=== PATIENT | male | born 1940 | race Caucasian/White ===

== ENCOUNTER 2016-03-17 12:44 | Emergency (ER) | payer MEDICARE ==
--- NOTE | 2016-03-17 13:49 | RAD ---
LEFT KNEE 4 VIEWS HISTORY: Left knee pain status post fall.. Frontal, lateral, and bilateral oblique views of the left knee. COMPARISON: 04/22/2015. ALIGNMENT: Lateral bowing of the fibular and tibial diaphyses. JOINT SPACES: Mild to moderate lateral tibial joint space narrowing. JOINT EFFUSION: Trace effusion, decreased over the interval. CALCIFICATIONS: Dystrophic calcifications along the proximal tibia. Mild to moderate vascular calcifications. FRACTURE: Evidence of remote proximal fibular and tibial fractures with increased sclerosis over the interval; nondisplaced acute on chronic injury is difficult to exclude. IMPRESSION: Changes of prior tibial and fibular diaphyseal fractures with associated angulation. Superimposed acute on chronic fracture is not excluded, consider CT correlation. Moderate lateral joint space narrowing. Evidence of lower extremity atherosclerotic disease.
--- NOTE | 2016-03-17 14:57 | CT ---
CT LEFT LOWER EXTREMITY WITHOUT CONTRAST HISTORY: Status post fall, prior fractures of the proximal left tibia and fibula. No intravenous contrast administered. Contiguous axial images acquired through the left knee. Correlation against plain films of the same date. FINDINGS: Fractures: Evidence of remote fractures the proximal left tibia and fibula with minor lateral angulation. No superimposed displaced acute fracture is identified. Degenerative change: Mild to moderate joint space narrowing at the tibial femoral compartments. Minimal calcifications compatible with early chondrocalcinosis. Small joint effusion. Soft tissues: Moderate atherosclerotic calcifications. Edema seen overlying the tibial tubercle. Fluid collection which may reflect a small Mckeon's cyst, 1.9 cm in size. IMPRESSION: Posttraumatic deformity of the proximal left tibia and fibula. No displaced acute fracture identified. Mild to moderate tibiofemoral joint degeneration and chondrocalcinosis with small joint effusion. Prevertebral soft tissue edema. Evidence of atherosclerotic disease. Findings suggest a small Mckeon's cyst. Findings discussed with Dr. Allen of the Emergency Medicine clinical service on 03/17/2016 at 1453 hours.
[2016-03-17] MEDS ORDERED: HYDROCODONE/ACETAMINOPHEN 5/325MG TABLET ONE (15:13)
== END 2016-03-17 16:19 | disposition home or self-care (01) ==
LOC: ED 12:44
DX: S83.92XA Sprain of unspecified site of left knee, initial encounter (principal); W18.30XA Fall on same level, unspecified, initial encounter; Y92.9 Unspecified place or not applicable
CPT/HCPCS: 73564; 73700; 99284; 99283; A9270

== ENCOUNTER 2016-03-19 15:40 | Emergency (ER) | payer MEDICARE ==
[2016-03-19 16:11] LABS: ABSOLUTE NEUTROPHIL COUNT 10.8 K/mm3 (1.8-7.7); BASO % 0.2 % (0.2-1.0); EOS # 0.1 (0.0-0.5); EOS % 0.5 % (0.9-2.9); HEMATOCRIT 28.7 % (32.0-52.0); HEMOGLOBIN 9.3 gm/l (14.0-18.0); IMM NEUT # 0.2 K/mm3 (0-0.2); IMM NEUT% 1.2 % (0-1); LYMPH # 0.5 (1.0-4.8); LYMPH % 4.1 % (15-45); MEAN CELL VOLUME 86.4 fl (80.0-94.0); MEAN CORPUSCULAR HGB CONC 32.4 g/dl (33.0-37.0); MEAN PLATELET VOLUME 10.8 fl (7.4-10.4); MONO # 1.3 (0.0-0.8); MONO % 9.9 % (4-12); NEUT % 84.1 % (43-75); PLATELET COUNT 294 K/mm3 (130-400); RED CELL DISTRIBUTION WIDTH 16.2 % (11.5-14.5)
--- NOTE | 2016-03-19 16:29 | RAD ---
EXAMINATION : CHEST-AP BEDSIDE HISTORY: Altered mental status. COMPARISONS: 04/13/2015. FINDINGS: Cardiomegaly sternotomy wires and valvular replacement surgery changes are again noted. Pulmonary vascular congestion appears similar to the prior study. No superimposed acute infiltrate is currently identified. No gross effusion is identified. Moderate glenohumeral osteoarthritic changes are again noted. IMPRESSION: Stable cardiomegaly and moderate pulmonary vascular congestion. Postsurgical changes are noted.
[2016-03-19 16:38] LABS: ALB/GLOB RATIO 0.8 (>1.0); ALBUMIN 2.9 gm/dL (3.5-5.7); CALCIUM 8.8 mg/dL (8.6-10.3)
[2016-03-19] MEDS ORDERED: SODIUM CHLORIDE 0.9% 500 ML ONE (17:49)
[2016-03-19 19:29] LABS: PH,URINE 6.5 (5.0-8.0); SPECIFIC GRAVITY 1.015 (1.001-1.030); URINE BILIRUBIN NEGATIVE (NEGATIVE); URINE BLOOD NEGATIVE (NEGATIVE); URINE GLUCOSE (UA) NEGATIVE (NEGATIVE); URINE LEUKOCYTE ESTERASE 2+ (NEGATIVE); URINE NITRITE NEGATIVE (NEGATIVE); URINE PROTEIN NEGATIVE (NEGATIVE); URINE UROBILINOGEN NORMAL (0-1 mg/dl)
[2016-03-19 20:12] LABS: URINE APPEARANCE CLOUDY; URINE COLOR YELLOW
[2016-03-19 20:17] LABS: URINE RBC 0 /hpf
[2016-03-19 20:18] LABS: URINE AMORPHOUS SEDIMENT MODERATE; URINE BACTERIA 1+; URINE EPITHELIAL CELLS 0 /hpf
[2016-03-19] MEDS ORDERED: CEFTRIAXONE 1 GRAM DUPLEX 50 ML IV ONE (20:20)
[2016-03-19 20:43] LABS: INR 2.32; PROTHROMBIN TIME 25.5 SECONDS (9.3-11.4)
== END 2016-03-19 22:24 | disposition home or self-care (01) ==
LOC: ED 15:40
DX: N39.0 Urinary tract infection, site not specified (principal); R41.82 Altered mental status, unspecified; M79.662 Pain in left lower leg; I10 Essential (primary) hypertension; I50.9 Heart failure, unspecified; I25.10 Atherosclerotic heart disease of native coronary artery without angina pectoris; Z79.01 Long term (current) use of anticoagulants; W19.XXXA Unspecified fall, initial encounter; Y92.9 Unspecified place or not applicable
CPT/HCPCS: 85025; 87086; 80053; 87186; 85610; 81001; 87077; 71010; 99284; 96374; 96361; 93005; 99283; J7040; J0696

== ENCOUNTER 2016-03-21 19:38 | Inpatient (IN) | payer MEDICARE ==
[2016-03-21 20:27] LABS: ABSOLUTE NEUTROPHIL COUNT 16.9 K/mm3 (1.8-7.7); BASO % 0.2 % (0.2-1.0); HEMOGLOBIN 10.9 gm/l (14.0-18.0); IMM NEUT # 0.2 K/mm3 (0-0.2); IMM NEUT% 1.2 % (0-1); LYMPH # 0.6 (1.0-4.8); MEAN CELL VOLUME 86.3 fl (80.0-94.0); MEAN CORPUSCULAR HEMOGLOBIN 27.7 pg (27.0-31.0); MEAN CORPUSCULAR HGB CONC 32.1 g/dl (33.0-37.0); MEAN PLATELET VOLUME 10.4 fl (7.4-10.4); MONO # 1.3 (0.0-0.8); MONO % 6.9 % (4-12); NEUT % 88.7 % (43-75); PLATELET COUNT 375 K/mm3 (130-400); RED CELL DISTRIBUTION WIDTH 16.8 % (11.5-14.5)
[2016-03-21 20:32] LABS: ALB/GLOB RATIO 0.8 (>1.0); ALBUMIN 3.2 gm/dL (3.5-5.7); CALCIUM 8.8 mg/dL (8.6-10.3)
[2016-03-21] MEDS ORDERED: LIDOCAINE 2% UROJECT 10 ML ONE (20:52)
[2016-03-21] MEDS ORDERED: ACETAMINOPHEN 500 MG TABLET ONE (21:24)
[2016-03-21] MEDS ORDERED: CEFTRIAXONE 1 GRAM DUPLEX 50 ML IV ONE (21:24)
[2016-03-21] MEDS ORDERED: LACTATED RINGERS 2,000 ML ONE (21:25)
[2016-03-21 21:36] LABS: SPECIFIC GRAVITY 1.015 (1.001-1.030); URINE BILIRUBIN NEGATIVE (NEGATIVE); URINE BLOOD NEGATIVE (NEGATIVE); URINE GLUCOSE (UA) NEGATIVE (NEGATIVE); URINE LEUKOCYTE ESTERASE TRACE (NEGATIVE); URINE NITRITE NEGATIVE (NEGATIVE); URINE PROTEIN TRACE (NEGATIVE); URINE UROBILINOGEN NORMAL (0-1 mg/dl)
[2016-03-21 21:37] LABS: URINE APPEARANCE CLEAR; URINE COLOR YELLOW
[2016-03-21 22:01] LABS: URINE RBC 0 /hpf
[2016-03-21 22:02] LABS: URINE BACTERIA FEW
[2016-03-21] MEDS ORDERED: ASPIRIN CHEWTAB 81 MG TABLET ONE (22:03)
[2016-03-21] MEDS ORDERED: LACTATED RINGERS 1,000 ML ONE (22:57)
[2016-03-22] MEDS ORDERED: BISACODYL 10 MG SUP PR PRN (00:25)
[2016-03-22] MEDS ORDERED: SODIUM CHLORIDE 0.9% 100 ML IV PRN (00:25)
[2016-03-22] MEDS ORDERED: MENTHOL/CETYLPYRD 1 EACH LOZENGE PO PRN (00:25)
[2016-03-22] MEDS ORDERED: BISACODYL 5 MG TABLET.EC PO PRN (00:25)
[2016-03-22] MEDS ORDERED: MAGNESIUM HYDROXIDE 30 ML UDCUP PO PRN (00:25)
[2016-03-22] MEDS ORDERED: BLISTEX LIPSTICK 1 EACH TP PRN (00:25)
[2016-03-22] MEDS ORDERED: SODIUM CHLORIDE 0.9% 1,000 ML IV SCH ×2 (00:30→01:07)
[2016-03-22] MEDS ORDERED: WARFARIN PER PHARMACY 1 EACH DOSE PO SCH (00:45)
[2016-03-22] MEDS ORDERED: QUETIAPINE FUMARATE 25 MG TABLET PO PRN (00:49)
[2016-03-22] MEDS ORDERED: ALBUTEROL SULFATE MDI 60 PUFFS/INHALER IH PRN (00:49)
[2016-03-22] MEDS ORDERED: ZINC OXIDE OINTMENT 30 APPLIC/30 G TUBE TP PRN (00:49)
[2016-03-22] MEDS ORDERED: TRIAMCINOLONE ACET 0.025% TP PRN (00:49)
[2016-03-22] MEDS ORDERED: MELATONIN 3 MG TABLET PO PRN (00:49)
[2016-03-22] MEDS ORDERED: CLOBETASOL PROPIONATE TP PRN (00:49)
[2016-03-22] MEDS ORDERED: PIPERACILLIN-TAZO PREMIX BAG 50 ML IV ONE (01:15)
[2016-03-22] MEDS ORDERED: PUMP TUBING ONE ×2 (01:16→17:03)
[2016-03-22] MEDS: PIPERACILLIN-TAZO PREMIX BAG 3.375 G in Premix (D5W) 50 ml 1 EACH IV SCH ×3 (01:28→17:08)
[2016-03-22 02:19] VITALS: BMI 35.4
[2016-03-22 06:30] LABS: HEMATOCRIT 28.9 % (32.0-52.0); MEAN CELL VOLUME 87.3 fl (80.0-94.0); MEAN CORPUSCULAR HEMOGLOBIN 27.2 pg (27.0-31.0); MEAN CORPUSCULAR HGB CONC 31.1 g/dl (33.0-37.0); RED CELL DISTRIBUTION WIDTH 16.6 % (11.5-14.5)
[2016-03-22 07:01] LABS: INR 1.88; PROTHROMBIN TIME 20.4 SECONDS (9.3-11.4)
--- NOTE | 2016-03-22 08:33 | PDOC43 ---
- Subjective Chief Complaint: altered mental status Patient resting comfortably. He is crabby, has no pain. Scrotal edema for 3 days. He does not know why he was at the hospital but says he has lost a day. Denies shortness of breath, chest pain. Asking for something to drink Subjective: Reports Pain Tolerable, Denies Adequate Oral Intake, Denies Shortness of Breath, Denies Cough, Denies Chest Pain, Denies Abdominal Pain, Denies Nausea, Denies Vomiting - Objective Vital Signs Temperature 97.7 F 03/22/16 07:00 Pulse Rate 66 03/22/16 07:00 Respiratory Rate 12 03/22/16 07:00 Blood Pressure 105/54 03/22/16 07:00 O2 Saturation by Pulse Oximetry 97 03/22/16 07:15 Oxygen Delivery Method Nasal Cannula Oxygen Flow Rate 1 Intake and Output 03/20/16 03/21/16 03/22/16 23:59 23:59 23:59 Intake Total 3424 Output Total 1495 Balance 1929 General: Alert, Oriented x3, Cooperative, Other (crabby), No Acute Distress HEENT: Other (dry mucus membranes), No Atraumatic, No PERRLA, No EOMI Lungs: Clear to Auscultation Bilaterally, Other (expiratory wheeze with upper airway noise) Cardiovascular: Regular Rate and Rhythm, Normal S1, Normal S2, Other ( mechanical valve click) Abdomen: Soft, Distention, No Tenderness, No Rebounding Genitourinary: Indwelling Urinary Cath, Other (scrotal edema, erythema tender, no warmth) Extremities: Edema, No Cyanosis, No Tenderness Peripheral Pulses: Radial (L): 2+, Radial (R): 2+, Posterior Tibialis (L): 2+, Posterior Tibialis (R): 2+ Neurological: Normal Speech Psych/Mental Status: Normal Mood, Other (cannot recall events over past 24 hours but acknowledges that he lost 24 hours, very demanding and crabby. Knows in [facility]) Laboratory 03/22/16 05:30 03/22/16 05:30 03/22/16 03/22/16 05:30 05:20 RBC 3.31 L MCHC 31.1 L RDW 16.6 H PT 20.4 H BUN 54 H Estimated GFR 42 L Calcium 8.0 L Current Medications: Current meds reviewed in EMR. - Problems: Assessment/Plan (1) Acute metabolic encephalopathy Status: Acute Assessment/Plan: resolved, patient aware that he has lost 24 hours, knows at [facility]. Presumed 2nd to sepsis/UTI (2) Sepsis Status: Acute Assessment/Plan: Presumed 2nd to UTI that failed OP ABx. Urine culture with proteus from 03/19, treated with rocephin and keflex. UCx sensitivities available, on zoysn due to failure of cephalosporin. Improving (3) UTI (urinary tract infection) Qualifiers: Urinary tract infection type: site unspecified Hematuria presence: without hematuria Qualifier Code: (N39.0) Urinary tract infection, site not specified Status: Acute Assessment/Plan: Proteus Mirabellis on culture from , on zoysn (4) Combined systolic and diastolic congestive heart failure Qualifiers: Congestive heart failure chronicity: acute on chronic Qualifier Code: ( I50.43) Acute on chronic combined systolic (congestive) and diastolic ( congestive) heart failure Status: Acute Assessment/Plan: Echo with EF 20%. Currently slight oedal edema and scrotal edema. 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 Status: Chronic Assessment/Plan: chronic ABX (9) Hypertension Qualifiers: Hypertension type: essential hypertension Qualifier Code: (I10) Essential (primary) hypertension Status: Chronic Assessment/Plan: stable, med parameters due to low BP on presentation (10) Hypothyroidism Qualifiers: Hypothyroidism type: due to acquired atrophy of thyroid Qualifier Code : (E03.8) Other specified hypothyroidism Status: Chronic Assessment/Plan: stable (11) Hypokalemia Status: Chronic Assessment/Plan: replace, on diuretics (12) Anemia Qualifiers: Anemia type: other cause Other causes of anemia: chronic disease, kidney Qualifier Code: (N18.9) Chronic kidney disease, unspecified Status: Chronic Assessment/Plan: slight dip[ overnight due to dilutional affects, monitor (13) Atrial fibrillation Qualifiers: Atrial fibrillation type: paroxysmal Qualifier Code: (I48.0) Paroxysmal atrial fibrillation Status: Chronic Assessment/Plan: regular rhythm currently (14) COPD (chronic obstructive pulmonary disease) Qualifiers: COPD type: emphysema Emphysema type: unspecified Qualifier Code: ( J43.9) Emphysema, unspecified Status: Chronic Assessment/Plan: continue home therapies and nebs as needed
[2016-03-22] MEDS ORDERED: DOCUSATE SODIUM 100 MG CAPSULE PO SCH (09:00)
--- NOTE | 2016-03-22 09:45 | RAD ---
Exam: Two-view chest COMPARISON: 03/19/2016 and 04/13/2015 INDICATION: Fever and altered mental status. Findings: AP and lateral views of the chest were obtained. Lateral view is slightly limited due to motion artifact. Postsurgical changes of median sternotomy and valve replacement are again appreciated. Cardiomegaly is similar. Lung volumes remain low. There is no pulmonary edema, focal airspace disease or pleural effusion. Bones of the chest wall are intact. Degenerative changes are noted within both shoulders. IMPRESSION: No acute pulmonary process. There is no radiographic evidence of pneumonia.
[2016-03-22] MEDS: ALLOPURINOL 100 MG TABLET PO SCH (09:56)
[2016-03-22] MEDS: TRIAMCINOLONE ACET 0.025% TP PRN ×2 (09:56→20:20)
[2016-03-22] MEDS: LEVOTHYROXINE SODIUM 175 MCG TABLET PO SCH (09:56)
[2016-03-22] MEDS: FINASTERIDE 5 MG TABLET PO SCH (09:56)
[2016-03-22] MEDS: DOCUSATE SODIUM 100 MG CAPSULE PO SCH ×2 (09:57→20:21)
[2016-03-22] MEDS: [UNRECOGNIZED DRUG - OTHER] IH SCH ×5 (09:57→20:20)
[2016-03-22] MEDS: IPRATROPIUM IH SCH ×5 (09:57→20:20)
[2016-03-22] MEDS: FERROUS SULFATE (65 Fe) 325 MG TABLET PO SCH (09:57)
[2016-03-22] MEDS: POTASSIUM CHLORIDE 10 MEQ TAB.SR PO SCH (09:57)
[2016-03-22] MEDS: KETOCONAZOLE 2% TP SCH ×2 (09:57→20:30)
[2016-03-22] MEDS: FUROSEMIDE 40 MG TABLET PO SCH (09:58)
[2016-03-22] MEDS: AMLODIPINE BESYLATE 5 MG TABLET PO SCH (09:58)
[2016-03-22] MEDS: METOPROLOL SUCCINATE (XL) 50 MG TAB.PRT.SR PO SCH (09:58)
[2016-03-22] MEDS: TAMSULOSIN HCL 0.4 MG CAPSULE.DR PO SCH (09:58)
[2016-03-22] MEDS: LEVOTHYROXINE SODIUM 100 MCG TABLET PO SCH (10:08)
[2016-03-22] MEDS: HYDRALAZINE HCL 25 MG TABLET PO SCH ×3 (10:09→22:15)
[2016-03-22] MEDS: ISOSORBIDE DINITRATE 20 MG TABLET PO SCH ×3 (10:09→20:20)
--- NOTE | 2016-03-22 11:20 | HP ---
HILL DON [id number] DATE OF : 1940 IDENTIFICATION: This is a 75-year-old male. CHIEF COMPLAINT: The patient was sent in from his [facility] where he resides due to changed mental status. HISTORY OF PRESENT ILLNESS: Patient is currently sleeping. He is arousable, but he falls asleep quickly. He says he came in for a swollen penis. History is sparse. He denies any pain, or trouble breathing. In review of electronic medical record, patient was here on 03/19/2016 for altered mental status, and he was found to have a urinary tract infection. He returned to his facility with Keflex to treat the urinary tract infection. The culture has since grown Porteus mirabilis. Today on presentation in the emergency department, he had a temperature of 101.8, and was tachycardic with heart rate in the 100s to 110s. PAST MEDICAL HISTORY: Includes: 1. Atherosclerosis. 2. Inoperable coronary artery disease. 3. Aortic valve secondary to an aortic dissection. 4. Hypertension. 5. History of endocarditis. 6. Atrial fibrillation. 7. Anemia. 8. Hypothyroidism. 9. Chronic systolic and diastolic congestive heart failure. 10. Chronic kidney disease stage III. 11. History of a stroke. 12. Benign prostatic hypertrophy. 13. Gout. 14. Chronic obstructive pulmonary disease. 15. Hypothyroidism. 16. Osteoarthritis. PAST SURGICAL HISTORY: Includes: 1. Aortic aneurysm repair with aortic valve replacement. 2. Left knee arthroscopy. CURRENT MEDICATIONS: Include: 1. Desitin. 2. Triamcinolone cream. 3. Ketoconazole. 4. Clobetasol. 5. Flomax. 6. Omeprazole. 7. Metoprolol. 8. Melatonin. 9. Levothyroxine. 10. Potassium chloride. 11. Levocetirizine. 12. Isosorbide dinitrate. 13. Hydralazine. 14. Furosemide. 15. Finasteride. 16. Ferrous sulfate. 17. Dicloxacillin. 18. Amlodipine. 19. Allopurinol. 20. Combivent. 21. Albuterol. 22. Tramadol. 23. Nitroglycerin as needed. 24. Warfarin. ALLERGIES: NO KNOWN ALLERGIES. SOCIAL HISTORY: He is a retired staff appraiser. He is . He does not have any kids, or current relationship. He quit alcohol, and tobacco about 15 years ago. FAMILY HISTORY: Includes mother who at the age of 102 and a father with congestive heart failure who at age of 59. REVIEW OF SYSTEMS: General: Patient denies any fevers, chills, pain, or shortness of breath. Genitourinary: He has scrotal edema. He said "it used to hurt when he peed". Musculoskeletal: Leg swelling. PHYSICAL EXAMINATION: VITAL SIGNS: Temperature is 99.8. Heart rate is 78. Blood pressure is 100/55. He is saturating 95% on 2 L. GENERAL: Asleep snoring, will arouse. HEENT: Normocephalic, atraumatic. No tenderness to palpation. Mucous membranes are dry. Pupils are equal, round and reactive. His extraocular muscles are intact. There is no scleral icterus, or conjunctival injection. CARDIOVASCULAR: Regular. Positive S1, S2. He has a mechanical valve. He has palpable pulses bilaterally radially with trace peripheral edema, bilateral pedal, and scrotal edema. RESPIRATORY: Transmitted upper respiratory, otherwise no wheezing, or crackles. ABDOMEN: Soft, nontender. No distention or rebound. No guarding. MUSCULOSKELETAL: He is moving extremities without difficulty. NEUROLOGIC: He is asleep and mumbling, but he will awake. SKIN: He has diffusely scattered maculopapular rashes. His scrotum is erythematous, tender, no warmth, slight induration. LABORATORY DATA: Sodium is 135, potassium 3.7, chloride 93, carbon dioxide 31, BUN 62, creatinine 1.8, and glucose 174. CK-MB of 2.8. Troponin 0.26. White blood count 19, hemoglobin 10.9, hematocrit 34, and platelet count of 375. VBG lactate was 1.8. Urinalysis was obtained and it showed 4 to 7 white blood cells, trace leukocyte esterase, negative for glucose, ketone, and nitrates. Influenza A and B were negative. DIAGNOSTIC IMAGING: Electrocardiogram was obtained and showed sinus tachycardia with an atrioventricular block, left bundle branch block. ASSESSMENT AND PLAN: This is a 75-year-old male with complicated cardiac history with inoperable coronary artery disease, systolic and diastolic heart failure with an ejection fraction of 30%, and aortic valve replacement presenting with altered mental status, acute kidney injury on top of chronic kidney disease with history of Porteus on urinary culture obtained from 03/19/2016. 1. Sepsis. Upon presentation to the emergency room, the patient met sepsis criteria due to his temperature elevated and white blood count, altered mental status, acute kidney injury with Porteus on urine culture. He received 3 L of IV fluids in the emergency department, and a dose of Tylenol, aspirin, and Rocephin. As he received Rocephin for the urinary tract infection and was on Keflex, I am changing the antibiotics to Zosyn as Porteus was susceptible to Zosyn. We have to cautious with his IV fluids to prevent a congestive heart failure exacerbation. 2. Acute kidney injury combined with chronic kidney disease due to poor by mouth intake for the past few days. He did not take any of his medications today. 3. Urinary tract infection. Porteus growing on culture. 4. Systolic and diastolic congestive heart failure. We will have to be cautious of IV fluids, he has fluid overload on exam, to prevent exacerbation. 5. Elevated troponin. Patient has inoperable coronary artery disease. I believe this is from demand ischemia with his current infectious process. We will monitor. 6. Coronary artery disease. We will continue his home medications. 7. Chronic kidney disease stage III. We will monitor and adjust medications as needed. 8. Chronic obstructive pulmonary disease. We will continue his home inhalers as needed. 9. History of endocarditis. We will continue with dicloxacillin. 10. Anemia due to chronic disease. We will monitor. 11. Patient is a Full code. When he is more awake and alert, we will revisit this as he with is current cardiac status he would not have a favorable outcome. TORRI/melania Cc: Elvis Arango MD
[2016-03-22] MEDS: DICLOXACILLIN SODIUM 250 MG CAPSULE PO SCH ×3 (11:45→22:15)
[2016-03-22] MEDS ORDERED: WARFARIN SODIUM 2 MG TABLET ONE (15:46)
[2016-03-22] MEDS ORDERED: WARFARIN SODIUM 1 MG TABLET ONE (15:47)
[2016-03-22] MEDS ORDERED: WARFARIN SODIUM 5 MG TABLET ONE (15:47)
[2016-03-22] MEDS: WARFARIN SODIUM PO SCH ×3 (15:51)
[2016-03-22] MEDS: ACETAMINOPHEN 325 MG TABLET PO PRN ×2 (15:51→22:15)
[2016-03-22] MEDS: SODIUM CHLORIDE 0.9% 1,000 ML IV SCH ×2 (21:16→21:17)
[2016-03-22] MEDS ORDERED: ONDANSETRON 4 MG/2ML 2 ML VIAL ONE (23:24)
[2016-03-22] MEDS: ONDANSETRON 4 MG/2ML 2 ML VIAL IV PRN (23:29)
[2016-03-23] MEDS: PIPERACILLIN-TAZO PREMIX BAG 3.375 G in Premix (D5W) 50 ml 1 EACH IV SCH ×2 (01:17→09:06)
[2016-03-23] MEDS: ACETAMINOPHEN 325 MG TABLET PO PRN (04:05)
[2016-03-23] MEDS: DICLOXACILLIN SODIUM 250 MG CAPSULE PO SCH ×2 (04:05→11:20)
[2016-03-23] MEDS: ONDANSETRON 4 MG/2ML 2 ML VIAL IV PRN (04:12)
[2016-03-23 06:51] LABS: HEMATOCRIT 28.5 % (32.0-52.0); HEMOGLOBIN 9.1 gm/l (14.0-18.0); MEAN CELL VOLUME 84.8 fl (80.0-94.0); MEAN CORPUSCULAR HEMOGLOBIN 27.1 pg (27.0-31.0); MEAN CORPUSCULAR HGB CONC 31.9 g/dl (33.0-37.0); RED CELL DISTRIBUTION WIDTH 16.3 % (11.5-14.5)
[2016-03-23] MEDS: LEVOTHYROXINE SODIUM 175 MCG TABLET PO SCH (07:04)
[2016-03-23] MEDS: LEVOTHYROXINE SODIUM 100 MCG TABLET PO SCH (07:05)
[2016-03-23 07:08] LABS: INR 1.59; PROTHROMBIN TIME 17.1 SECONDS (9.3-11.4)
[2016-03-23 08:45] LABS: CALCIUM 8.4 mg/dL (8.6-10.3)
[2016-03-23] MEDS: HYDRALAZINE HCL 25 MG TABLET PO SCH ×3 (08:52→21:37)
[2016-03-23] MEDS: FUROSEMIDE 40 MG TABLET PO SCH (08:53)
[2016-03-23] MEDS: ALLOPURINOL 100 MG TABLET PO SCH (09:08)
[2016-03-23] MEDS: KETOCONAZOLE 2% TP SCH ×2 (09:08→23:31)
[2016-03-23] MEDS: FINASTERIDE 5 MG TABLET PO SCH (09:08)
[2016-03-23] MEDS: DOCUSATE SODIUM 100 MG CAPSULE PO SCH ×2 (09:08→21:38)
[2016-03-23] MEDS: FERROUS SULFATE (65 Fe) 325 MG TABLET PO SCH (09:08)
[2016-03-23] MEDS: POTASSIUM CHLORIDE 10 MEQ TAB.SR PO SCH (09:08)
[2016-03-23] MEDS: TAMSULOSIN HCL 0.4 MG CAPSULE.DR PO SCH (09:09)
[2016-03-23] MEDS: METOPROLOL SUCCINATE (XL) 50 MG TAB.PRT.SR PO SCH (09:09)
[2016-03-23] MEDS: IPRATROPIUM IH SCH ×2 (09:15→12:29)
[2016-03-23] MEDS: [UNRECOGNIZED DRUG - OTHER] IH SCH ×2 (09:15→12:29)
[2016-03-23] MEDS: AMLODIPINE BESYLATE 5 MG TABLET PO SCH (09:36)
[2016-03-23] MEDS ORDERED: FUROSEMIDE 20 MG/2 ML VIAL IV ONE (09:37)
[2016-03-23] MEDS: ISOSORBIDE DINITRATE 20 MG TABLET PO SCH ×4 (09:42→21:38)
[2016-03-23] MEDS ORDERED: ZINC OXIDE OINT 60 APPLIC/60 G TUBE TP PRN (13:38)
[2016-03-23] MEDS ORDERED: QUETIAPINE FUMARATE 25 MG TABLET PO PRN (13:39)
--- NOTE | 2016-03-23 13:57 | PDOC43 ---
- Subjective Chief Complaint: altered mental status Patient reports not sleeping so well last night (confirmed by RN). No new c/o, reports breathing ok. - Objective Vital Signs Temperature 98.1 F 03/23/16 12:33 Pulse Rate 87 03/23/16 12:33 Respiratory Rate 20 03/23/16 12:33 Blood Pressure 101/63 03/23/16 12:33 O2 Saturation by Pulse Oximetry 94 03/23/16 12:33 Oxygen Delivery Method Nasal Cannula Oxygen Flow Rate 1 Vital Signs Last 12 Hours Temp Pulse Resp BP Pulse Ox 03/23/16 12:33 98.1 F 87 20 101/63 94 03/23/16 08:56 106/63 03/23/16 07:00 92 03/23/16 06:53 98.3 F 94 20 102/59 92 03/23/16 03:54 94 03/23/16 03:45 98.8 F 97 18 105/63 94 03/23/16 01:22 18 Intake and Output 03/21/16 03/22/16 03/23/16 23:59 23:59 23:59 Intake Total 5047 960 Output Total 3395 1800 Balance 1652 -840 Intake & Output 03/22/16 03/23/16 03/23/16 23:59 07:59 15:59 Intake Total 200 710 250 Output Total 950 1800 Balance -750 -1090 250 Weight 99.5 kg 99.8 kg Intake: PO Intake 200 710 200 IV Fluids 50 Output: Morrison Output 950 1400 Emesis 400 Other: Unmeasured Stool Amount Small Small Number of Stools 1 1 Unmeasured Emesis Amount Large Medium Number of Emesis Episodes 1 General: Alert, Cooperative, Other (hard of hearing) Lungs: Clear to Auscultation Bilaterally Cardiovascular: Regular Rate and Rhythm, Other (mechanical sounding heart valve) Abdomen: Soft, Normal Bowel Sounds (sl active, sl gassy sounding), Non-Distended , Other (Sl hernia suggested.) Genitourinary: Other (severe scrotal edema with some mild erythema, Morrison in) Extremities: Other (SCds on, not a significant amount of edema noted at ankles.) Skin: Normal Color Neurological: Normal Speech Psych/Mental Status: Normal Affect Laboratory 03/23/16 06:15 03/23/16 06:15 03/23/16 06:15 RBC 3.36 L MCHC 31.9 L RDW 16.3 H PT 17.1 H BUN 47 H Estimated GFR 45 L Calcium 8.4 L Current Medications: Current meds reviewed in EMR. Active Medications Acetaminophen (Tylenol) 650 mg PO Q6H PRN PRN Reason: Pain or Temperature > 100.5 F Last Admin: 03/23/16 04:05 Dose: 650 mg Albuterol Sulfate (Ventolin Hfa Mdi) 2 puffs IH Q6H PRN PRN Reason: Wheezing Albuterol/Ipratropium (Combivent Respimat Inhal [place]) 1 puffs IH QID [facility] Last Admin: 03/23/16 12:29 Dose: 1 puff Albuterol/Ipratropium (Duoneb) 3 ml NEB Q6H PRN PRN Reason: Wheezing Allopurinol (Zyloprim) 100 mg PO DAILY [facility] Last Admin: 03/23/16 09:08 Dose: 100 mg Amlodipine Besylate (Norvasc) 10 mg PO DAILY [facility] Last Admin: 03/23/16 09:36 Dose: Not Given Benzocaine/Menthol (Cepacol) 1 each PO PRN PRN PRN Reason: Sore Throat Bisacodyl (Dulcolax) 10 mg GA DAILY PRN PRN Reason: Constipation Bisacodyl (Dulcolax) 5 mg PO DAILY PRN PRN Reason: Constipation Dicloxacillin Sodium (Dynapen) 500 mg PO Q6H [facility] Last Admin: 03/23/16 11:20 Dose: 500 mg Docusate Sodium (Colace) 100 mg PO BID [facility] Last Admin: 03/23/16 09:08 Dose: 100 mg Ferrous Sulfate (Ferrous Sulfate) 325 mg PO DAILY [facility] Last Admin: 03/23/16 09:08 Dose: 325 mg Finasteride (Proscar) 5 mg PO DAILY [facility] Last Admin: 03/23/16 09:08 Dose: 5 mg Furosemide (Lasix) 80 mg PO QAM [facility] Last Admin: 03/23/16 08:53 Dose: Not Given Hydralazine HCl (Apresoline) 50 mg PO TID [facility] Last Admin: 03/23/16 08:52 Dose: Not Given Sodium Chloride (Sodium Chloride 0.9%) 100 mls @ 25 mls/hr IV PRN PRN PRN Reason: Flush Piperacillin Sod/Tazobactam Sod 3.375 g/ NS 0.9% (MINI-BAG PLUS) 50 mls @ 100 mls/hr IV Q8HR [facility] Isosorbide Dinitrate (Isordil) 30 mg PO TID [facility] Last Admin: 03/23/16 09:42 Dose: 30 mg Ketoconazole (Nizoral 2%) 1 applic TP BID [facility] Last Admin: 03/23/16 09:08 Dose: 1 applic Levothyroxine Sodium (Levothroid) 100 mcg PO QAMAC [facility] Last Admin: 03/23/16 07:05 Dose: 100 mcg Levothyroxine Sodium (Levothroid) 175 mcg PO QAMAC [facility] Last Admin: 03/23/16 07:04 Dose: 175 mcg Magnesium Hydroxide (Milk Of Magnesia) 30 ml PO DAILY PRN PRN Reason: Constipation Melatonin (Melatonin) 3 mg PO BEDTIME PRN PRN Reason: Insomnia Last Admin: 03/22/16 20:58 Dose: 3 mg Metoprolol Succinate (Toprol Xl) 50 mg PO DAILY [facility] Last Admin: 03/23/16 09:09 Dose: 50 mg Miscellaneous (Coumadin Per Pharmacy) 1 each PO PERPHARMACY [facility] Miscellaneous (Clobetasol Propionate [Clobetasol Propionate]) 15 gm TP BID PRN PRN Reason: Itching Multi-Ingredient Ointment (Zinc Oxide Ointment) 1 applic TP PRN PRN PRN Reason: skin care Ondansetron HCl (Zofran) 4 mg IV Q3H PRN PRN Reason: Nausea/Vomiting Last Admin: 03/23/16 04:12 Dose: 4 mg Petrolatum/Paraffin/Mineral Oil (Blistex) 1 each TP PRN PRN PRN Reason: Dry and/or chapped lips Potassium Chloride (K-Dur) 20 meq PO DAILY [facility] Last Admin: 03/23/16 09:08 Dose: 20 meq Quetiapine Fumarate (Seroquel) 25 mg PO BEDTIME PRN PRN Reason: Agitation Last Admin: 03/22/16 20:21 Dose: 25 mg Sodium Chloride (Normal Saline 10ml Flush) 10 - 50 ml IV PRN PRN PRN Reason: IV Flush Last Admin: 03/23/16 09:06 Dose: 10 ml Tamsulosin HCl (Flomax) 0.4 mg PO DAILY [facility] Last Admin: 03/23/16 09:09 Dose: 0.4 mg Triamcinolone Acetonide (Kenalog) 1 applic TP PRN PRN PRN Reason: Rash Last Admin: 03/22/16 20:20 Dose: 1 applic Warfarin Sodium 2 mg/ Warfarin Sodium 5 mg/ Warfarin Sodium 1 mg 8 mg PO SuTuFr @1600 [facility] Last Admin: 03/22/16 15:51 Dose: 8 mg Warfarin Sodium (Coumadin) 6 mg PO MoWeThSa@1600 [facility] - Problems: Assessment/Plan (1) Combined systolic and diastolic congestive heart failure Qualifiers: Congestive heart failure chronicity: acute on chronic Qualifier Code: ( I50.43) Acute on chronic combined systolic (congestive) and diastolic ( congestive) heart failure Status: Acute Assessment/Plan: Echo 04/16 with EF 20%. Currently scrotal edema. Continue home medications, caution with IVf Try to increase blood volume with administration of iron. Cautious administration of IV Lasix to help scrotal edema, (2) Sepsis Qualifiers: Sepsis type: sepsis due to unspecified organism Qualifier Code: (A41.9 ) Sepsis, unspecified organism Status: Acute Assessment/Plan: Presumed 2nd to UTI, presumed lower, but can't rule out upper or pyelo, that failed OP ABx. Influenza testing negative. Urine culture with Proteus from 03/19, treated with rocephin and keflex. UCx sensitivities available, was on zosyn due to failure of cephalosporin. Improving clinically, (3) UTI (urinary tract infection) Qualifiers: Urinary tract infection type: site unspecified Hematuria presence: without hematuria Qualifier Code: (N39.0) Urinary tract infection, site not specified Status: Acute Assessment/Plan: Proteus mirabilis on culture from 03/19/2015, but sens to most drugs testing, will revise to PO Cipro. Consider longer duration of tx, to cover possibility of pyelo or ascending UTI. (4) Anemia Qualifiers: Anemia type: other cause Other causes of anemia: chronic disease, kidney Qualifier Code: (N18.9) Chronic kidney disease, unspecified Status: Chronic Assessment/Plan: Hb 9.1, indices on small side. Markedly low iron studies previously 2015; plan IV iron while here. (5) CKD (chronic kidney disease) stage 3, GFR 30-59 ml/min Status: Chronic Assessment/Plan: Cr 1.8->1.5 with hydration. dose adjust medications. (6) Acute metabolic encephalopathy Status: Acute Assessment/Plan: resolved, Presumed 2nd to sepsis/UTI (7) Coronary artery disease Qualifiers: Coronary Disease-Associated Artery/Lesion type: [place] artery [place] vs. transplanted heart: [place] heart Associated angina: angina presence unspecified Qualifier Code: (I25.10) Atherosclerotic heart disease of [place] coronary artery without angina pectoris Status: Chronic Assessment/Plan: felt to be inoperable. Modest elevation of troponin, not felt to be NSTEMI nor ACS. (8) H/O endocarditis Status: Chronic Assessment/Plan: with mechanical sounding aortic valve. Will given enoxaparin while waiting for INR to return to goal of 2.5 - 3.5. VTE Prophylaxis: On warfarin, INR 1.59, adding enoxaparin Disposition: anticipate return to home in the next 1-2 days, assuming no return of encephalopathy, fevers.
[2016-03-23] MEDS ORDERED: IRON SUCROSE COMPLEX 200 MG in SODIUM CHLORIDE 0.9% 100 ML IV ONE (14:00)
[2016-03-23] MEDS ORDERED: CEPHALEXIN 500 MG CAPSULE PO SCH (15:00)
[2016-03-23] MEDS: CIPROFLOXACIN 500 MG TABLET PO SCH ×2 (15:08→21:38)
[2016-03-23] MEDS: ENOXAPARIN SODIUM 100 MG/ML SYRINGE SUB-Q SCH (15:10)
[2016-03-23] MEDS: CLOTRIMAZOLE 1% 15 APPLIC/15 G CREAM TP SCH ×2 (15:29→22:15)
[2016-03-23] MEDS ORDERED: WARFARIN SODIUM 2 MG TABLET PO SCH (16:00)
[2016-03-23] MEDS ORDERED: PIPERACILLIN SODIUM/TAZOBACTAM 3.375 G in NS 0.9% (MINI-BAG PLUS) 50 ML IV SCH (17:00)
[2016-03-23] MEDS: ALBUTEROL/IPRATROPIUM 2.5/0.5 MG 3 ML/EACH DOSE NEB SCH (20:48)
[2016-03-23] MEDS: TRIAMCINOLONE ACET 0.025% TP PRN (22:16)
[2016-03-23] MEDS: ALBUTEROL/IPRATROPIUM 2.5/0.5 MG 3 ML/EACH DOSE NEB PRN (23:43)
[2016-03-24] MEDS: ENOXAPARIN SODIUM 100 MG/ML SYRINGE SUB-Q SCH ×2 (02:16→13:25)
[2016-03-24 07:05] LABS: ABSOLUTE NEUTROPHIL COUNT 16.2 K/mm3 (1.8-7.7); BASO % 0.1 % (0.2-1.0); EOS # 0.1 (0.0-0.5); EOS % 0.3 % (0.9-2.9); HEMATOCRIT 28.1 % (32.0-52.0); HEMOGLOBIN 8.9 gm/l (14.0-18.0); IMM NEUT # 0.2 K/mm3 (0-0.2); IMM NEUT% 1.3 % (0-1); LYMPH # 0.5 (1.0-4.8); LYMPH % 2.7 % (15-45); MEAN CELL VOLUME 85.9 fl (80.0-94.0); MEAN CORPUSCULAR HEMOGLOBIN 27.2 pg (27.0-31.0); MEAN CORPUSCULAR HGB CONC 31.7 g/dl (33.0-37.0); MEAN PLATELET VOLUME 10.6 fl (7.4-10.4); MONO # 0.8 (0.0-0.8); MONO % 4.5 % (4-12); NEUT % 91.1 % (43-75); PLATELET COUNT 273 K/mm3 (130-400); RED CELL DISTRIBUTION WIDTH 16.4 % (11.5-14.5)
[2016-03-24] MEDS: ALBUTEROL/IPRATROPIUM 2.5/0.5 MG 3 ML/EACH DOSE NEB SCH ×4 (07:40→19:36)
[2016-03-24] MEDS: LEVOTHYROXINE SODIUM 100 MCG TABLET PO SCH (07:52)
[2016-03-24] MEDS: LEVOTHYROXINE SODIUM 175 MCG TABLET PO SCH (07:52)
[2016-03-24 07:56] LABS: ANISOCYTOSIS 1+; BAND 0 % (0-10); BASOPHIL 0 % (0-1); EOSINOPHIL 1 % (1-3); LYMPHOCYTE 2 % (15-45); MONOCYTE 3 % (4-12); NEUTROPHILS 94 % (43-75); PLATELET ESTIMATE NORMAL (NORMAL); TOTAL CELLS COUNTED 100
[2016-03-24 08:13] LABS: CALCIUM 8.3 mg/dL (8.6-10.3)
[2016-03-24 08:18] LABS: INR 2.05; PROTHROMBIN TIME 22.4 SECONDS (9.3-11.4)
[2016-03-24] MEDS: AMLODIPINE BESYLATE 5 MG TABLET PO SCH (09:17)
[2016-03-24] MEDS: FUROSEMIDE 40 MG TABLET PO SCH (09:17)
[2016-03-24] MEDS: HYDRALAZINE HCL 25 MG TABLET PO SCH ×3 (09:17→21:50)
[2016-03-24] MEDS: ISOSORBIDE DINITRATE 20 MG TABLET PO SCH ×3 (09:22→21:50)
[2016-03-24] MEDS: CIPROFLOXACIN 500 MG TABLET PO SCH ×2 (09:25→21:50)
[2016-03-24] MEDS: METOPROLOL SUCCINATE (XL) 50 MG TAB.PRT.SR PO SCH (09:25)
[2016-03-24] MEDS: DOCUSATE SODIUM 100 MG CAPSULE PO SCH ×2 (09:26→21:50)
[2016-03-24] MEDS: TAMSULOSIN HCL 0.4 MG CAPSULE.DR PO SCH (09:26)
[2016-03-24] MEDS: FINASTERIDE 5 MG TABLET PO SCH (09:26)
[2016-03-24] MEDS: FERROUS SULFATE (65 Fe) 325 MG TABLET PO SCH (09:26)
[2016-03-24] MEDS: ALLOPURINOL 100 MG TABLET PO SCH (09:27)
[2016-03-24] MEDS: POTASSIUM CHLORIDE 10 MEQ TAB.SR PO SCH (09:27)
[2016-03-24] MEDS: CLOTRIMAZOLE 1% 15 APPLIC/15 G CREAM TP SCH ×2 (09:28→21:51)
[2016-03-24] MEDS: KETOCONAZOLE 2% TP SCH ×2 (09:28→21:50)
[2016-03-24] MEDS: ACETAMINOPHEN 325 MG TABLET PO PRN (11:22)
--- NOTE | 2016-03-24 14:20 | PDOC43 ---
- Subjective Chief Complaint: altered mental status Patient awake. He denies any pain, shortness of breath. Scrotum bothersome Subjective: Reports Pain Tolerable, Reports Tolerating Diet Well, Reports Adequate Oral Intake, Denies Shortness of Breath, Denies Cough, Denies Chest Pain, Denies Abdominal Pain, Denies Nausea, Denies Vomiting - Objective Vital Signs Temperature 98.0 F 03/24/16 11:45 Pulse Rate 96 03/24/16 11:45 Respiratory Rate 18 03/24/16 11:45 Blood Pressure 92/51 03/24/16 13:27 O2 Saturation by Pulse Oximetry 91 03/24/16 11:45 Oxygen Delivery Method Nasal Cannula Oxygen Flow Rate 1 Intake and Output 03/22/16 03/23/16 03/24/16 23:59 23:59 23:59 Intake Total 5047 1080 1340 Output Total 3395 2650 600 Balance 1652 -1570 740 General: Alert, Oriented x3, Cooperative, Other (morbily obese), No Acute Distress HEENT: Atraumatic, PERRLA, EOMI, Mucous membr. moist/pink Lungs: Clear to Auscultation Bilaterally, Normal Air Movement, Other (upper respiratory noise, no crackles) Cardiovascular: Regular Rate and Rhythm, Normal S1, Normal S2, Other (valve click) Abdomen: Soft, Distention, No Rigid, No Tenderness, No Rebounding Genitourinary: Other (scrotal edema, erythema improving) Extremities: No Cyanosis, No Edema, No Tenderness Neurological: Normal Speech, Other (hard of hearing) Psych/Mental Status: Other (ornery) Laboratory 03/24/16 06:20 03/24/16 06:20 03/24/16 06:20 RBC 3.27 L MCHC 31.7 L RDW 16.4 H PT 22.4 H BUN 51 H Estimated GFR 45 L Calcium 8.3 L B-Natriuretic Peptide > 1250 H % Immature Granulocyt 1.3 H Current Medications: Current meds reviewed in EMR. - Problems: Assessment/Plan (1) Acute metabolic encephalopathy Status: Acute Assessment/Plan: resolved, Presumed 2nd to sepsis/UTI (2) Sepsis Qualifiers: Sepsis type: sepsis due to unspecified organism Qualifier Code: (A41.9 ) Sepsis, unspecified organism Status: Acute Assessment/Plan: Presumed 2nd to UTI, presumed lower, but can't rule out upper or pyelo, that failed OP ABx. Influenza testing negative. Urine culture with Proteus from 03/19, treated with rocephin and keflex. UCx sensitivities available, was on zosyn due to failure of cephalosporin. Improving clinically, (3) UTI (urinary tract infection) Qualifiers: Urinary tract infection type: site unspecified Hematuria presence: without hematuria Qualifier Code: (N39.0) Urinary tract infection, site not specified Status: Acute Assessment/Plan: Proteus mirabilis on culture from 03/19/2015, but sens to most drugs testing, will revise to PO Cipro. Consider longer duration of tx, to cover possibility of pyelo or ascending UTI. (4) Combined systolic and diastolic congestive heart failure Qualifiers: Congestive heart failure chronicity: acute on chronic Qualifier Code: ( I50.43) Acute on chronic combined systolic (congestive) and diastolic ( congestive) heart failure Status: Acute Assessment/Plan: Echo 04/16 with EF 20%. Currently scrotal edema. Continue home medications, caution with IVf Try to increase blood volume with administration of iron. Cautious administration of IV Lasix to help scrotal edema, (5) CKD (chronic kidney disease) stage 3, GFR 30-59 ml/min Status: Chronic Assessment/Plan: Cr 1.8->1.5 with hydration. dose adjust medications. 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 Status: Chronic Assessment/Plan: chronic ABX (9) Hypertension Qualifiers: Hypertension type: essential hypertension Qualifier Code: (I10) Essential (primary) hypertension Status: Chronic Assessment/Plan: stable, med parameters due to low BP on presentation (10) Hypothyroidism Qualifiers: Hypothyroidism type: due to acquired atrophy of thyroid Qualifier Code : (E03.8) Other specified hypothyroidism Status: Chronic Assessment/Plan: stable (11) Hypokalemia Status: Chronic Assessment/Plan: replace, on diuretics (12) Anemia Qualifiers: Anemia type: other cause Other causes of anemia: chronic disease, kidney Qualifier Code: (N18.9) Chronic kidney disease, unspecified Status: Chronic Assessment/Plan: Hb 9.1, indices on small side. Markedly low iron studies previously 2015; plan IV iron while here. (13) Atrial fibrillation Qualifiers: Atrial fibrillation type: paroxysmal Qualifier Code: (I48.0) Paroxysmal atrial fibrillation Status: Chronic Assessment/Plan: regular rhythm currently (14) COPD (chronic obstructive pulmonary disease) Qualifiers: COPD type: emphysema Emphysema type: unspecified Qualifier Code: ( J43.9) Emphysema, unspecified Status: Chronic Assessment/Plan: continue home therapies and nebs as needed VTE Prophylaxis: On warfarin, INR 1.59, adding enoxaparin Disposition: anticipate return to home in the next 1-2 days, assuming no return of encephalopathy, fevers. DC PNBC 03/25
[2016-03-24] MEDS ORDERED: WARFARIN SODIUM 2 MG TABLET ONE (15:11)
[2016-03-24] MEDS ORDERED: WARFARIN SODIUM 1 MG TABLET ONE (15:11)
[2016-03-24] MEDS ORDERED: WARFARIN SODIUM 5 MG TABLET ONE (15:11)
[2016-03-24] MEDS: WARFARIN SODIUM PO SCH ×3 (15:15)
[2016-03-24] MEDS: TRIAMCINOLONE ACET 0.025% TP PRN (21:50)
[2016-03-25] MEDS: ENOXAPARIN SODIUM 100 MG/ML SYRINGE SUB-Q SCH (02:30)
[2016-03-25] MEDS: ALBUTEROL/IPRATROPIUM 2.5/0.5 MG 3 ML/EACH DOSE NEB PRN (02:31)
[2016-03-25] MEDS: ONDANSETRON 4 MG/2ML 2 ML VIAL IV PRN (04:05)
[2016-03-25 06:27] LABS: INR 2.32; PROTHROMBIN TIME 25.4 SECONDS (9.3-11.4)
[2016-03-25 06:29] LABS: CALCIUM 8.3 mg/dL (8.6-10.3)
[2016-03-25 06:53] LABS: ABSOLUTE NEUTROPHIL COUNT 13.2 K/mm3 (1.8-7.7); BASO % 0.2 % (0.2-1.0); EOS # 0.1 (0.0-0.5); EOS % 0.6 % (0.9-2.9); HEMOGLOBIN 8.7 gm/l (14.0-18.0); IMM NEUT # 0.2 K/mm3 (0-0.2); IMM NEUT% 1.4 % (0-1); LYMPH # 0.6 (1.0-4.8); LYMPH % 3.8 % (15-45); MEAN CELL VOLUME 88.6 fl (80.0-94.0); MEAN CORPUSCULAR HEMOGLOBIN 27.5 pg (27.0-31.0); MEAN CORPUSCULAR HGB CONC 31.1 g/dl (33.0-37.0); MEAN PLATELET VOLUME 10.6 fl (7.4-10.4); MONO # 0.8 (0.0-0.8); MONO % 5.4 % (4-12); NEUT % 88.6 % (43-75); PLATELET COUNT 294 K/mm3 (130-400); RED CELL DISTRIBUTION WIDTH 16.8 % (11.5-14.5)
[2016-03-25] MEDS: LEVOTHYROXINE SODIUM 175 MCG TABLET PO SCH (07:06)
[2016-03-25] MEDS: LEVOTHYROXINE SODIUM 100 MCG TABLET PO SCH (07:06)
[2016-03-25 08:01] VITALS: BP 104/63
[2016-03-25] MEDS: ALBUTEROL/IPRATROPIUM 2.5/0.5 MG 3 ML/EACH DOSE NEB SCH ×2 (08:17→12:00)
--- NOTE | 2016-03-25 08:28 | PDOC5 ---
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 He had previously been diagnosed with a UTI 2 days prior. He was discharged home from the ED with Keflex and then returned. He was admitted to the hospital and treated for sepsis 2nd to the UTI. Urine cultures grew proteus mirabellis and he was treated with zosyn for 2 days then transitioned to ciprofloxacin based upon culture sensitivities. His chronic medical conditions were managed per his outpatient medication regime. His scrotal edema had little improvement over the hospital stay. His mentation returned to baseline. With physical therapy, it was determined that he will benefit from rehabilitation. He is being discharged [facility] for ongoing care. - Exam Vital Signs Temperature 98.3 F 03/25/16 07:59 Pulse Rate 114 03/25/16 07:59 Respiratory Rate 17 03/25/16 07:59 Blood Pressure 104/63 03/25/16 07:59 O2 Saturation by Pulse Oximetry 90 03/25/16 07:59 Oxygen Delivery Method Nasal Cannula Oxygen Flow Rate 1 General: Alert, Oriented x3, Cooperative, No Acute Distress HEENT: Atraumatic, PERRLA, EOMI, Mucous membr. moist/pink Lungs: Clear to Auscultation Bilaterally, Normal Air Movement, Other (coarse, rare expiratory wheeze, lot of transmitted upper respiratory tract noise) Cardiovascular: Regular Rate and Rhythm, Normal S1, Normal S2, Murmur, Other ( mechanical valve) Abdomen: Soft, Distention, No Rigid, No Tenderness, No Rebounding Genitourinary: Other (scrotal edema) Extremities: No Cyanosis, No Edema, No Pulses Diminished but Palpable Neurological: Normal Speech Psych/Mental Status: Normal Mood - Results Laboratory 03/25/16 06:00 03/25/16 05:30 03/25/16 03/25/16 03/24/16 06:00 05:30 06:20 RBC 3.16 L MCHC 31.1 L RDW 16.8 H PT 25.4 H 22.4 H BUN 54 H 51 H Estimated GFR 42 L 45 L Calcium 8.3 L 8.3 L % Immature Granulocyt 1.4 H Laboratory Tests 03/21/16 03/24/16 21:16 06:20 B-Natriuretic Peptide > 1250 H Influenza A (Rapid) Negative Influenza B (Rapid) Negative Imaging Results: CXR: no acute cardiopulmonary process - Problems:Assessment/Plan (1) Acute metabolic encephalopathy Status: Acute Assessment/Plan: resolved, Presumed 2nd to sepsis/UTI (2) Sepsis Qualifiers: Sepsis type: sepsis due to unspecified organism Qualifier Code: (A41.9 ) Sepsis, unspecified organism Status: Acute Assessment/Plan: Presumed 2nd to UTI, presumed lower, but can't rule out upper or pyelo, that failed OP ABx. Influenza testing negative. Urine culture with Proteus from 03/19, treated with rocephin and keflex. UCx sensitivities available, was on zosyn due to failure of cephalosporin. Improving clinically, (3) UTI (urinary tract infection) Qualifiers: Urinary tract infection type: site unspecified Hematuria presence: without hematuria Qualifier Code: (N39.0) Urinary tract infection, site not specified Status: Acute Assessment/Plan: Proteus mirabilis on culture from 03/19/2015, but sens to most drugs testing, will revise to PO Cipro. Consider longer duration of tx, to cover possibility of pyelo or ascending UTI. (4) Combined systolic and diastolic congestive heart failure Qualifiers: Congestive heart failure chronicity: acute on chronic Qualifier Code: ( I50.43) Acute on chronic combined systolic (congestive) and diastolic ( congestive) heart failure Status: Acute Assessment/Plan: Echo 04/16 with EF 20%. Currently scrotal edema. Continue home medications, caution with IVf Try to increase blood volume with administration of iron. Cautious administration of IV Lasix to help scrotal edema, (5) CKD (chronic kidney disease) stage 3, GFR 30-59 ml/min Status: Chronic Assessment/Plan: Cr 1.8->1.5 with hydration. dose adjust medications. 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 Status: Chronic Assessment/Plan: chronic ABX (9) Hypertension Qualifiers: Hypertension type: essential hypertension Qualifier Code: (I10) Essential (primary) hypertension Status: Chronic Assessment/Plan: stable, med parameters due to low BP on presentation (10) Hypothyroidism Qualifiers: Hypothyroidism type: due to acquired atrophy of thyroid Qualifier Code : (E03.8) Other specified hypothyroidism Status: Chronic Assessment/Plan: stable (11) Hypokalemia Status: Chronic Assessment/Plan: replace, on diuretics (12) Anemia Qualifiers: Anemia type: other cause Other causes of anemia: chronic disease, kidney Qualifier Code: (N18.9) Chronic kidney disease, unspecified Status: Chronic Assessment/Plan: Hb 9.1, indices on small side. Markedly low iron studies previously 2014; plan IV iron while here. (13) Atrial fibrillation Qualifiers: Atrial fibrillation type: paroxysmal Qualifier Code: (I48.0) Paroxysmal atrial fibrillation Status: Chronic Assessment/Plan: regular rhythm currently (14) COPD (chronic obstructive pulmonary disease) Qualifiers: COPD type: emphysema Emphysema type: unspecified Qualifier Code: ( J43.9) Emphysema, unspecified Status: Chronic Assessment/Plan: continue home therapies and nebs as needed - Disposition: Disposition: anticipate return to home in the next 1-2 days, assuming no return of encephalopathy, fevers. DC PNBC 03/25 - Discharge Plan Instruction Forms: Heart Failure, Warfarin Therapy Education Prescriptions: Ciprofloxacin [CIPRO 500 MG TABLET (SHF)] 500 mg PO BID #28 tablet Follow-Up: José Miguel JONES [Other] Sukhdev Inman MD [Primary Care Provider] - Condition: Good Disposition: Intermediate Facility
[2016-03-25] MEDS: DOCUSATE SODIUM 100 MG CAPSULE PO SCH (08:48)
[2016-03-25] MEDS: HYDRALAZINE HCL 25 MG TABLET PO SCH (08:48)
[2016-03-25] MEDS: POTASSIUM CHLORIDE 10 MEQ TAB.SR PO SCH (08:48)
[2016-03-25] MEDS: METOPROLOL SUCCINATE (XL) 50 MG TAB.PRT.SR PO SCH (08:49)
[2016-03-25] MEDS: ALLOPURINOL 100 MG TABLET PO SCH (08:49)
[2016-03-25] MEDS: FERROUS SULFATE (65 Fe) 325 MG TABLET PO SCH (08:49)
[2016-03-25] MEDS: ISOSORBIDE DINITRATE 20 MG TABLET PO SCH (08:49)
[2016-03-25] MEDS: ACETAMINOPHEN 325 MG TABLET PO PRN (08:49)
[2016-03-25] MEDS: AMLODIPINE BESYLATE 5 MG TABLET PO SCH (08:50)
[2016-03-25] MEDS: FUROSEMIDE 40 MG TABLET PO SCH (08:50)
[2016-03-25] MEDS: TAMSULOSIN HCL 0.4 MG CAPSULE.DR PO SCH (08:50)
[2016-03-25] MEDS: FINASTERIDE 5 MG TABLET PO SCH (08:50)
[2016-03-25] MEDS: CIPROFLOXACIN 500 MG TABLET PO SCH (08:50)
[2016-03-25] MEDS: CLOTRIMAZOLE 1% 15 APPLIC/15 G CREAM TP SCH (08:59)
[2016-03-25] MEDS: KETOCONAZOLE 2% TP SCH (08:59)
== END 2016-03-25 12:57 | DRG 871 ==
LOC: ED 19:38 → ICU 23:19 → MS 03-22 15:20
PROVIDERS: ADMIT Family Medicine; ATTEND Family Medicine
DX: A41.89 Other specified sepsis (principal); G93.41 Metabolic encephalopathy; N39.0 Urinary tract infection, site not specified; I13.0 Hypertensive heart and chronic kidney disease with heart failure and stage 1 through stage 4 chronic kidney disease, or unspecified chronic kidney disease; I50.42 Chronic combined systolic (congestive) and diastolic (congestive) heart failure; N17.9 Acute kidney failure, unspecified; I38 Endocarditis, valve unspecified; N18.3 Chronic kidney disease, stage 3 (moderate); I70.90 Unspecified atherosclerosis; I25.10 Atherosclerotic heart disease of native coronary artery without angina pectoris; I48.91 Unspecified atrial fibrillation; E03.9 Hypothyroidism, unspecified; Z86.73 Personal history of transient ischemic attack (TIA), and cerebral infarction without residual deficits; J44.9 Chronic obstructive pulmonary disease, unspecified; D63.1 Anemia in chronic kidney disease; N50.89 Other specified disorders of the male genital organs; N40.0 Benign prostatic hyperplasia without lower urinary tract symptoms; E87.6 Hypokalemia; Z79.01 Long term (current) use of anticoagulants; W19.XXXA Unspecified fall, initial encounter; Y92.9 Unspecified place or not applicable

== ENCOUNTER 2016-03-29 10:33 | Emergency (ER) | payer MEDICARE ==
[2016-03-29] MEDS ORDERED: LACTATED RINGERS 2,000 ML ONE (11:05)
[2016-03-29 11:16] LABS: BASO % 0.3 % (0.2-1.0); EOS # 0.1 (0.0-0.5); EOS % 0.5 % (0.9-2.9); HEMATOCRIT 29.8 % (32.0-52.0); IMM NEUT # 0.1 K/mm3 (0-0.2); IMM NEUT% 0.8 % (0-1); LYMPH # 0.5 (1.0-4.8); LYMPH % 3.6 % (15-45); MEAN CELL VOLUME 88.4 fl (80.0-94.0); MEAN CORPUSCULAR HEMOGLOBIN 26.7 pg (27.0-31.0); MEAN CORPUSCULAR HGB CONC 30.2 g/dl (33.0-37.0); MEAN PLATELET VOLUME 9.3 fl (7.4-10.4); MONO # 0.8 (0.0-0.8); MONO % 5.6 % (4-12); NEUT % 89.2 % (43-75); PLATELET COUNT 397 K/mm3 (130-400)
[2016-03-29] MEDS ORDERED: ALBUTEROL/IPRATROPIUM 2.5/0.5 MG 3 ML/EACH DOSE ONE (11:21)
[2016-03-29] MEDS ORDERED: PIPERACILLIN SODIUM/TAZOBACTAM 4.5 G in NS 0.9% (MINI-BAG PLUS) 100 ML IV ONE (11:30)
[2016-03-29] MEDS ORDERED: VANCOMYCIN HCL 2 G in SODIUM CHLORIDE 0.9% 500 ML IV ONE (11:30)
[2016-03-29 11:33] LABS: INR 4.1; PROTHROMBIN TIME 46.4 SECONDS (9.3-11.4)
[2016-03-29] MEDS ORDERED: FENTANYL 100 MCG/2 ML VIAL ONE (11:38)
[2016-03-29 11:40] LABS: ALB/GLOB RATIO 0.7 (>1.0); ALBUMIN 2.5 gm/dL (3.5-5.7); CALCIUM 8.6 mg/dL (8.6-10.3)
--- NOTE | 2016-03-29 12:35 | RAD ---
PORTABLE CHEST RADIOGRAPH HISTORY: Shortness of breath and wheezing. Frontal portable chest radiograph dated 03/29/2016. COMPARISON: 03/21/2016 FINDINGS: FOCAL AIRSPACE OPACITY: Retrocardiac density. PLEURAL EFFUSION: Somewhat limited assessment due to soft tissue artifact, small layering effusions possible. CARDIOMEDIASTINAL SILHOUETTE: Prominent cardiomegaly. Evidence of prior valvular replacement. PNEUMOTHORAX: None identified. OSSEOUS STRUCTURES: Prominent degeneration of the left shoulder. IMPRESSION: Retrocardiac density may reflect atelectasis or infiltrate. Possible layering small pleural effusions. Severe cardiomegaly with evidence of valvular replacement. Degenerative change of the left glenohumeral joint.
[2016-03-29 13:40] LABS: URINE BILIRUBIN NEGATIVE (NEGATIVE); URINE BLOOD NEGATIVE (NEGATIVE); URINE GLUCOSE (UA) NEGATIVE (NEGATIVE); URINE LEUKOCYTE ESTERASE NEGATIVE (NEGATIVE); URINE NITRITE NEGATIVE (NEGATIVE); URINE PROTEIN NEGATIVE (NEGATIVE); URINE UROBILINOGEN NORMAL (0-1 mg/dl)
[2016-03-29 13:43] LABS: URINE APPEARANCE CLEAR; URINE COLOR YELLOW
== END 2016-03-29 12:40 | disposition short-term general hospital (02) ==
LOC: ED 10:33
DX: N49.2 Inflammatory disorders of scrotum (principal); R09.02 Hypoxemia; J44.9 Chronic obstructive pulmonary disease, unspecified; I11.0 Hypertensive heart disease with heart failure; I50.9 Heart failure, unspecified; I48.91 Unspecified atrial fibrillation; Z79.01 Long term (current) use of anticoagulants
CPT/HCPCS: 83605; 83690; 85025; 87040 ×2; 87070; 80053; 87186; 85610; 81003; 87077; 71010; 94640; 96375; 99285 ×2; 96365; 36415; 93005; J3010; J7120; J7040; J2543; J3370

== ENCOUNTER 2016-04-16 13:34 | Emergency (ER) | payer MEDICARE ==
[2016-04-16 14:30] LABS: ABSOLUTE NEUTROPHIL COUNT 5.1 K/mm3 (1.8-7.7); BASO % 0.6 % (0.2-1.0); EOS # 0.1 (0.0-0.5); EOS % 1.9 % (0.9-2.9); HEMATOCRIT 25.1 % (32.0-52.0); HEMOGLOBIN 7.6 gm/l (14.0-18.0); IMM NEUT% 0.6 % (0-1); LYMPH # 0.6 (1.0-4.8); MEAN CELL VOLUME 90.9 fl (80.0-94.0); MEAN CORPUSCULAR HEMOGLOBIN 27.5 pg (27.0-31.0); MEAN CORPUSCULAR HGB CONC 30.3 g/dl (33.0-37.0); MEAN PLATELET VOLUME 9.8 fl (7.4-10.4); MONO # 0.5 (0.0-0.8); MONO % 8.4 % (4-12); NEUT % 79.5 % (43-75); PLATELET COUNT 301 K/mm3 (130-400); RED CELL DISTRIBUTION WIDTH 18.9 % (11.5-14.5)
[2016-04-16 14:51] LABS: ALB/GLOB RATIO 0.8 (>1.0); ALBUMIN 2.8 gm/dL (3.5-5.7); CALCIUM 8.5 mg/dL (8.6-10.3)
[2016-04-16 15:10] LABS: URINE BILIRUBIN NEGATIVE (NEGATIVE); URINE BLOOD 4+ (NEGATIVE); URINE GLUCOSE (UA) NEGATIVE (NEGATIVE); URINE LEUKOCYTE ESTERASE NEGATIVE (NEGATIVE); URINE NITRITE NEGATIVE (NEGATIVE); URINE PROTEIN 1+ (NEGATIVE); URINE UROBILINOGEN NORMAL (0-1 mg/dl)
[2016-04-16 15:16] LABS: URINE APPEARANCE CLEAR; URINE COLOR YELLOW
[2016-04-16 15:28] LABS: URINE BACTERIA FEW; URINE EPITHELIAL CELLS 0 /hpf; URINE RBC 60-80 /hpf; URINE WBC 0-1 /hpf
[2016-04-16 15:37] LABS: HYPOCHROMIA 1+; PLATELET ESTIMATE NORMAL (NORMAL)
[2016-04-16 15:40] LABS: INR 4.26; PROTHROMBIN TIME 48.3 SECONDS (9.3-11.4)
[2016-04-16] MEDS ORDERED: ONDANSETRON 4 MG ODT TAB ONE (16:18)
[2016-04-16] MEDS ORDERED: ACETAMINOPHEN 500 MG TABLET ONE (16:28)
--- NOTE | 2016-04-16 17:04 | CT ---
CT ABDOMEN AND PELVIS WITHOUT CONTRAST HISTORY: Epigastric pain x1 day TECHNIQUE: No intravenous contrast administered; contiguous axial images were acquired from the lung bases to the ischial tuberosities. Oral contrast was not administered. COMPARISON: Body CT from 05/22/2014 FINDINGS: LUNG BASES: Small pleural effusions. Foci of lower lobe nodularity including a right lower lobe nodule 5 mm in size, image 4, left lower lobe nodule 7 mm in size, image 9, these lesions suggested on prior imaging. Minor atelectatic change. LIVER: No focal mass effect. SPLEEN: No focal mass effect. PANCREAS: Subtle stranding along the mesentery root and periportal region, not clearly seen on prior imaging, subtle changes of early pancreatitis are possible. ADRENAL GLANDS: No mass effect. KIDNEYS: No renal calculi. No collecting system dilatation. GALLBLADDER: High attenuation content compatible with cholelithiasis. BOWEL: Mild to moderate fecal load. No small bowel dilatation. Distal colonic diverticulosis without diverticulitis. APPENDIX: Normal gas-filled appendix. PELVIC ORGANS: Thick-walled bladder with indwelling Morrison catheter and nondependent gas, correlate for cystitis. FREE FLUID: No gross free fluid identified. INGUINAL REGIONS: Fatty inguinal hernias. Note is made of skin thickening and edema in the vicinity of the penis, correlate for cellulitis there is incompletely depicted air-fluid level to the left of the penis which could reflect a small abscess this region, up to 1.7 cm in size. ABDOMINOPELVIC LYMPH NODES: Enlargement of the left inguinal lymph node, 2.8 cm in size. Retrocrural lymph node measures 10 mm in size. ABDOMINAL AORTA: Evidence of prior dissection calcified flap, stable finding. Borderline aneurysmal dilatation transplant of segment 3.3 cm. Ectasia of the left internal iliac artery, 1.7 cm. Moderate atherosclerotic calcifications. OSSEOUS STRUCTURES: Levoconvex scoliosis with severe changes of hip osteoarthritis and thoracolumbar disc degeneration. Severe canal stenosis at L2-3 through L4-5 levels. IMPRESSION: 1. Fatty stranding raising suspicion for early pancreatitis. No baljit associated necrotic change. 2. Incompletely depicted air-fluid level which may reflect penile/scrotal abscess, recommend further pelvic imaging for delineation of this abnormality. Surrounding changes of cellulitis. 3. Bladder wall thickening with indwelling Morrison and nondependent gas, correlate for cystitis. 4. Pulmonary nodules which are suggested on prior April 2014 imaging, recommend eventual 6 month follow-up. 5. Distal colonic diverticulosis without diverticulitis. Nonobstructive appearance of bowel. Normal appendix. 6. Fatty inguinal hernias. 7. Evidence of prior aortic dissection with borderline aneurysmal dilatation of the transhiatal segment. Focal ectasia of the proximal left internal iliac artery with evidence of aortoiliac atherosclerotic disease. 8. Cholelithiasis. 9. Severe changes of lumbar spondylosis with levoconvex scoliosis. Severe canal stenosis at L2-3 through L4-5 levels. 10. Severe bilateral hip osteoarthritis. Findings discussed with Dr. Allen of the Emergency Medicine clinical service on 04/16/2016 at approximately 1700 hours.
== END 2016-04-16 19:14 | disposition home or self-care (01) ==
LOC: ED 13:34
DX: R10.9 Unspecified abdominal pain (principal); R11.0 Nausea; D64.9 Anemia, unspecified; I48.91 Unspecified atrial fibrillation; I25.10 Atherosclerotic heart disease of native coronary artery without angina pectoris; I50.9 Heart failure, unspecified; Z79.01 Long term (current) use of anticoagulants
CPT/HCPCS: 83690; 85025; 80053; 85610; 85045; 84484; 81001; 74176; 99284; 36415; 99283; A9270 ×2

== ENCOUNTER 2016-04-20 18:39 | Inpatient (IN) | payer MEDICARE ==
[2016-04-20 19:29] LABS: ABSOLUTE NEUTROPHIL COUNT 7.2 K/mm3 (1.8-7.7); BASO # 0.1 K/mm3 (0.0-0.2); BASO % 0.6 % (0.2-1.0); EOS # 0.1 (0.0-0.5); EOS % 1.3 % (0.9-2.9); HEMATOCRIT 26.4 % (32.0-52.0); HEMOGLOBIN 7.8 gm/l (14.0-18.0); IMM NEUT% 0.5 % (0-1); LYMPH # 0.5 (1.0-4.8); LYMPH % 5.6 % (15-45); MEAN CORPUSCULAR HEMOGLOBIN 27.2 pg (27.0-31.0); MEAN CORPUSCULAR HGB CONC 29.5 g/dl (33.0-37.0); MEAN PLATELET VOLUME 10.2 fl (7.4-10.4); MONO # 0.8 (0.0-0.8); MONO % 8.9 % (4-12); NEUT % 83.1 % (43-75); PLATELET COUNT 307 K/mm3 (130-400); RED CELL DISTRIBUTION WIDTH 20.1 % (11.5-14.5); SPECIFIC GRAVITY 1.015 (1.001-1.030); URINE BILIRUBIN NEGATIVE (NEGATIVE); URINE BLOOD 1+ (NEGATIVE); URINE GLUCOSE (UA) NEGATIVE (NEGATIVE); URINE LEUKOCYTE ESTERASE TRACE (NEGATIVE); URINE NITRITE NEGATIVE (NEGATIVE); URINE PROTEIN NEGATIVE (NEGATIVE); URINE UROBILINOGEN NORMAL (0-1 mg/dl)
[2016-04-20 19:34] LABS: URINE APPEARANCE HAZY; URINE COLOR YELLOW
[2016-04-20 19:43] LABS: INR 2.7; PROTHROMBIN TIME 29.8 SECONDS (9.3-11.4); URINE BACTERIA FEW; URINE EPITHELIAL CELLS FEW /hpf
[2016-04-20 19:45] LABS: TROPONIN I 0.05 ng/ml (0.0-0.06)
[2016-04-20 19:47] LABS: ALB/GLOB RATIO 0.8 (>1.0); ALBUMIN 2.9 gm/dL (3.5-5.7); CALCIUM 8.2 mg/dL (8.6-10.3); MAGNESIUM 1.6 mg/dL (1.9-2.7)
[2016-04-20 19:55] LABS: THYROID STIMULATING HORMONE 0.02 uIU/ml (0.34-5.60)
--- NOTE | 2016-04-20 20:11 | RAD ---
Exam: Two-view chest COMPARISON: 03/29/2016, 03/21/2016 INDICATION: Shortness of breath. FINDINGS: AP and lateral views of the chest were obtained. Lateral view is slightly limited due to motion artifact and rotation. Postsurgical changes of median sternotomy and valve replacement are appreciated. Cardiomegaly is similar. There is improved aeration of the lung bases when compared with the prior exam. There is no focal airspace disease or apparent pleural effusion. Degenerative change are noted within the shoulders. IMPRESSION: Cardiomegaly and prior heart surgery, however no acute pulmonary process is identified.
[2016-04-20] MEDS ORDERED: MENTHOL/CETYLPYRD 1 EACH LOZENGE PO PRN (21:18)
[2016-04-20] MEDS ORDERED: BISACODYL 5 MG TABLET.EC PO PRN (21:18)
[2016-04-20] MEDS ORDERED: SODIUM CHLORIDE 0.9% 100 ML IV PRN (21:18)
[2016-04-20] MEDS ORDERED: MAGNESIUM HYDROXIDE 30 ML UDCUP PO PRN (21:18)
[2016-04-20] MEDS ORDERED: BLISTEX LIPSTICK 1 EACH TP PRN (21:18)
[2016-04-20 21:22] VITALS: BMI 31.1
[2016-04-20] MEDS ORDERED: FUROSEMIDE 40 MG/4 ML VIAL IV ONE (21:31)
[2016-04-20] MEDS ORDERED: PUMP TUBING ONE (21:45)
[2016-04-20 21:49] LABS: ANISOCYTOSIS 1+; PLATELET ESTIMATE NORMAL (NORMAL)
[2016-04-20] MEDS ORDERED: ENOXAPARIN SODIUM 40 MG/0.4 ML SYRINGE SUB-Q SCH (22:00)
[2016-04-20] MEDS ORDERED: MAGNESIUM SULFATE 2 G/50 ML 2 G in Premix (Water) 50 ml 1 EACH IV ONE (22:15)
[2016-04-20] MEDS: ACETAMINOPHEN 325 MG TABLET PO PRN (22:43)
[2016-04-20] MEDS ORDERED: ONDANSETRON 4 MG ODT TAB PO PRN (22:54)
[2016-04-20] MEDS ORDERED: TRIAMCINOLONE ACET 0.025% TP PRN (22:54)
[2016-04-20] MEDS ORDERED: ALBUTEROL NEB 2.5 MG/3 ML VIAL.NEB NEB PRN (22:59)
[2016-04-20] MEDS ORDERED: WARFARIN SODIUM 5 MG TABLET PO SCH (23:00)
[2016-04-20] MEDS: DOCUSATE SODIUM 100 MG CAPSULE PO SCH (23:34)
[2016-04-21] MEDS: MELATONIN 3 MG TABLET PO PRN ×2 (00:17→21:08)
[2016-04-21] MEDS: METOPROLOL TARTRATE 25 MG TABLET PO SCH ×3 (00:55→21:08)
[2016-04-21 05:19] LABS: ABSOLUTE NEUTROPHIL COUNT 4.4 K/mm3 (1.8-7.7); BASO % 0.7 % (0.2-1.0); EOS # 0.1 (0.0-0.5); EOS % 2.2 % (0.9-2.9); HEMATOCRIT 25.3 % (32.0-52.0); HEMOGLOBIN 7.7 gm/l (14.0-18.0); IMM NEUT% 0.3 % (0-1); LYMPH # 0.7 (1.0-4.8); LYMPH % 11.4 % (15-45); MEAN CORPUSCULAR HGB CONC 30.4 g/dl (33.0-37.0); MEAN PLATELET VOLUME 9.8 fl (7.4-10.4); MONO # 0.6 (0.0-0.8); MONO % 9.9 % (4-12); NEUT % 75.5 % (43-75); PLATELET COUNT 314 K/mm3 (130-400); RED CELL DISTRIBUTION WIDTH 20.2 % (11.5-14.5)
[2016-04-21 05:39] LABS: CALCIUM 8.3 mg/dL (8.6-10.3)
[2016-04-21 05:45] LABS: INR 2.57; PROTHROMBIN TIME 28.4 SECONDS (9.3-11.4)
[2016-04-21] MEDS ORDERED: LEVOTHYROXINE SODIUM 175 MCG TABLET PO SCH (07:30)
[2016-04-21] MEDS ORDERED: LEVOTHYROXINE SODIUM 100 MCG TABLET PO SCH (07:30)
--- NOTE | 2016-04-21 07:47 | HP ---
Zack Joseph [id number] DATE OF ADMISSION: 04/20/2016 CHIEF COMPLAINT: Fluid overload. HISTORY OF PRESENT ILLNESS: Patient is a 75-year-old male resident of [facility] who was transferred to the [facility] Emergency Department by ambulance due to concerns about increasing edema and some dyspnea symptoms. 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 He was on a ventilator for several days as well. He discharged on April back to [facility]. Prior to that, he had been hospitalized at [facility] between March 21 and March 25 for a urinary tract infection caused by Proteus mirabilis. The patient has been recuperating at [facility] with twice daily dressing changes and the staff noticed increased swelling in his lower extremities in the last 48 hours and he has had some increased dyspnea on exertion. He was evaluated in the emergency department and referred to the hospitalist service for admission for acute on chronic diastolic and systolic heart failure. REVIEW OF SYSTEMS: Negative for any fevers or chills. He has had no recent upper respiratory symptoms. He has had some dyspnea on exertion and occasional wheezing. He denies any palpitations. He has had mild orthopnea. He has had weight gain of unknown weight and increased lower extremity edema as mentioned above. He denies any nausea or vomiting. He has had no abdominal pain. He had about 10 bowel movements today after a period of constipation. He denies any new arthralgias, headaches, fainting, blackouts, or seizures. He denies any urinary complaints, but has had an indwelling Morrison catheter since his discharge from [facility] on April 08. 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 He apparently has follow up with urology and possibly with plastic surgery for a skin graft. He was hospitalized in March for a urinary tract infection as I mentioned above. He has a chronic systolic and diastolic heart failure. Last echocardiogram preformed here was in April 2015 showing a left ventricular ejection fraction of 20% and April 2015 he had a congestive heart failure exacerbation. He had a perirectal abscess in 2014. He has a history of thoracic and abdominal aortic aneurysm's which have been surgically repaired in the past. He had a non-ST segment elevation myocardial infarction in April 2014 transferred to [facility] and treated nonoperatively. He reportedly is not a candidate for any cardiac interventions. He does not see a paper products printer on a regular basis. He has chronic stage III kidney disease with a baseline creatinine around 1.6. He has anemia of chronic disease. He has a history of a cerebrovascular accident with transient right sided weakness and expressive aphasia in 2003, which resolved. He has a history of gout. He has osteoarthritis. He had an aortic valve replacement many years ago which was complicated by endocarditis. He has chronic obstructive pulmonary disease. He has benign prostatic hypertrophy. He has hypothyroidism. He had some suspected psoriasis. PAST SURGICAL HISTORY: Significant for thoracic and abdominal aortic aneurysm repair with heart valve replacement, uncertain date, I believe in the early . He has had arthroscopic surgery on his left knee in the past. He had multiple debridement's of the peroneal area between March 29, 2016 and April 02, 2016. He had a colonoscopy in November 2015. He had incision and drainage of a perirectal abscess in May 2014. He has had arthroscopic surgery on his left knee. ALLERGIES: He has no known drug allergies. CURRENT MEDICATIONS: Include: 1. Coumadin 5 mg by mouth on Wednesday, Wednesday, and Wednesday. 2. Kenalog cream 0.025% applied to his psoriatic skin lesions twice daily as needed. 3. Flomax 0.4 mg daily. 4. Potassium chloride 40 mEq daily. 5. Oxycodone 5 mg every 3 to 4 hours as needed for pain. 6. Zofran 4 mg every 8 hours as needed for nausea. 7. Prilosec 20 mg daily. 8. Nystatin powder one application in skin folds twice daily. 9. Metoprolol tartrate 25 mg twice daily. 10. Melatonin 3 mg at bedtime as needed for sleep. 11. Levothyroxine 275 mcg daily. 12. Levocetirizine 5 mg by mouth daily. 13. Isosorbide dinitrate 10 mg three times daily. 14. Combivent meter dose inhaler one puff four times daily. 15. Lasix 80 mg every morning and 60 mg in the afternoon. 16. Proscar 5 mg by mouth daily. 17. Colace 100 mg by mouth daily. 18. Calcium citrate with vitamin D 1 tablet daily. 19. Lipitor 80 mg daily. 20. Chewable aspirin 81 mg daily. 21. Amlodipine 10 mg daily. 22. Allopurinol 100 mg daily. 23. Albuterol HFA inhaler two puffs every 6 hours as needed for wheezing. FAMILY HISTORY: Significant for a mother who of an myocardial infarction at the age of 102. His father at the age of 59 of heart failure. SOCIAL HISTORY: He was briefly, but has no children. He is currently single. He was living with assistance at the [facility] until his recent illness and now is in rehab at [facility]. He has a brother who is his closest family. He is a former smoker for approximately a 30 pack years and quit 10 years ago. He quit drinking alcohol about 15 years ago. His primary care provider is Dr. Sukhdev Inman. His code status is full code. PHYSICAL EXAMINATION: VITALS: Body mass index 31.1, weight 98.3 kg, temperature is 98.0, pulse 87, blood pressure 123/68, respirations 14, oxygen saturation are 93% on room air. GENERAL: This is an obese elderly male in no acute distress. HEENT: Shows moist pink oral mucosa. Pupils equal, round, and reactive to light. Extraocular movements are intact. No oral lesions are present. NECK: Shows slight jugular venous distention. LUNGS: Lung sounds are diminished in the bases with bibasilar crackles. CARDIOVASCULAR: Reveals a regular rate and rhythm without a murmur. ABDOMEN: Soft, nontender, nondistended with positive bowel sounds. GENITOURINARY: Shows surgical incision circumferentially around the penis which is packed with gauze dressings. Palpated the skin around the incision and there is no induration or fluctuance identified. The packing was not removed at this time. EXTREMITIES: His lower extremities show 2+ pitting edema extending to the knees and 1+ edema in the posterior thighs up to the buttocks. There is no skin breakdown in his lower extremities. He does have some papulosquamous plaques scattered around his lower extremities and on his torso consistent with psoriasis. NEUROLOGIC: Nonfocal. DIAGNOSTIC IMAGING STUDIES: Included a chest x-ray showing evidence of cardiomegaly. A 12-lead EKG shows sinus tachycardia with an intraventricular conduction delay and a first degree AV block. LABORATORY STUDIES: Showed a white count of 8.7, hemoglobin of 7.8, platelet count of 307,000, 83% neutrophils, 5% lymphocytes. INR is therapeutic at 2.70. Lactate is 1.4. Chemistry profile shows a sodium of 134, potassium 4.4, carbon dioxide 23, BUN 54, creatinine 1.7, glucose 124, magnesium 1.6. B-type natiuretic peptide is over 1250. Albumin is 2.9, globulin is 3.6. TSH is suppressed at 0.02. Urinalysis is unremarkable. ASSESSMENT AND PLAN: The patient has acute on chronic systolic and diastolic congestive heart failure with worsening lower extremity edema. He has a complex surgical wound in the perineum without evidence of secondary infection. He has a history of an aortic valve replacement on chronic anticoagulant therapy with Coumadin. He normally has history of hypothyroidism, but laboratory studies show evidence of iatrogenic hyperthyroidism, will reduce his thyroid dose. He has a history of coronary artery disease, which is inoperable, but stable without angina. He has a history of paroxysmal atrial fibrillation. He has a history of chronic stage III kidney disease to which appears to be stable. Initially he was admitted to the intensive care unit due to uncertain status of borderline blood pressures, concerns about cardiogenic shock, and his ability to tolerate diuresis. He will be kept under intermediate care unit status overnight. He will be diuresed with IV Lasix. His electrolytes will be closely monitored. He will get daily weights and input and output will be monitored closely as well. I am going to put him on 80 mg of IV Lasix twice daily. I am going to change his dressing and explore the wound more closely in the morning. He will continue with Kerlix packing of the wound using a dry dressing twice a day as ordered by his surgeon's. He will have his thyroid dose reduced from 275 mcg daily down to 250 mcg daily. He will be on a cardiac diet. Will monitor his INR. Further treatment and recommendations will depend on his hospital course. JOB: [id number] CC: Dr. Sukhdev Inman
[2016-04-21] MEDS ORDERED: AMLODIPINE BESYLATE 5 MG TABLET PO SCH (09:00)
[2016-04-21] MEDS ORDERED: DOCUSATE SODIUM 100 MG CAPSULE PO SCH (09:00)
[2016-04-21] MEDS: POTASSIUM CHLORIDE 10 MEQ TAB.SR PO SCH (09:38)
[2016-04-21] MEDS: ATORVASTATIN CALCIUM 40 MG TABLET PO SCH (09:38)
[2016-04-21] MEDS: FINASTERIDE 5 MG TABLET PO SCH (09:38)
[2016-04-21] MEDS: FUROSEMIDE 100 MG/10 ML VIAL IV SCH ×2 (09:38→21:07)
[2016-04-21] MEDS: ISOSORBIDE DINITRATE 10 MG TABLET PO SCH ×3 (09:39→21:08)
[2016-04-21] MEDS: ASPIRIN (ENTERIC COATED) 81 MG TABLET.EC PO SCH (09:39)
[2016-04-21] MEDS: PANTOPRAZOLE 40 MG TABLET DR PO SCH (09:39)
[2016-04-21] MEDS: DOCUSATE SODIUM 100 MG CAPSULE PO SCH ×2 (09:39→21:08)
[2016-04-21] MEDS: ALLOPURINOL 100 MG TABLET PO SCH (09:39)
[2016-04-21] MEDS: ACETAMINOPHEN 325 MG TABLET PO PRN ×3 (09:44→19:11)
[2016-04-21] MEDS: BISACODYL 10 MG SUP PR PRN (09:51)
--- NOTE | 2016-04-21 10:15 | PDOC43 ---
- Subjective Chief Complaint: anasarca, recent Gely's gangrene Patient reported to want some coffee, would like the menu. Notes pain at surgical site, but doing ok. No respiratory, cardiac c/o, just asks if he had a heart attack. No new c/o. - Objective Vital Signs Temperature 97.5 F 04/21/16 07:05 Pulse Rate 89 04/21/16 07:05 Respiratory Rate 16 04/21/16 07:15 Blood Pressure 138/81 04/21/16 07:05 O2 Saturation by Pulse Oximetry 98 04/21/16 07:05 Oxygen Delivery Method Room Air Oxygen Flow Rate 0 Vital Signs Last 12 Hours Temp Pulse Resp BP Pulse Ox 04/21/16 07:15 16 04/21/16 07:05 97.5 F 89 16 138/81 98 04/21/16 05:09 82 16 111/61 92 04/21/16 03:00 16 04/21/16 00:00 88 13 116/61 96 04/20/16 23:00 14 Intake and Output 04/19/16 04/20/16 04/21/16 23:59 23:59 23:59 Intake Total 480 Output Total 2075 Balance -1595 General: Alert, Cooperative, No Acute Distress Lungs: Other (generally CTA anteriorly.) Cardiovascular: Regular Rate and Rhythm (mechanical click from valve noted.) Abdomen: Soft, Normal Bowel Sounds, Non-Distended, Other Genitourinary: Other (Large incision from L anterior scrotum, up around penis bilat, and to inguinal region. Tissue edges appear generally healing, repacked today.) Rectal Exam: Deferred Extremities: Edema (2+ edema of ankles bilat) Skin: Normal Color, Other (diffuse rash on shins, abdomen, potentially consistent with dx of psoriasis. few scattered bruises on R arm, elsewhere.) Neurological: Normal Speech Psych/Mental Status: Normal Affect Laboratory 04/21/16 05:10 04/21/16 05:10 04/21/16 05:10 RBC 2.75 L MCHC 30.4 L RDW 20.2 H PT 28.4 H BUN 49 H Estimated GFR 45 L Calcium 8.3 L Current Medications: Current meds reviewed in EMR. Active Medications Cardio Amlodipine Besylate (Norvasc) 10 mg PO DAILY [facility] Last Admin: 04/21/16 09:39 Dose: 10 mg Aspirin (Ecotrin) 81 mg PO DAILY [facility] Last Admin: 04/21/16 09:39 Dose: 81 mg Atorvastatin Calcium (Lipitor) 80 mg PO DAILY [facility] Last Admin: 04/21/16 09:38 Dose: 80 mg Furosemide (Lasix) 80 mg IV BID [facility] Last Admin: 04/21/16 09:38 Dose: 80 mg Isosorbide Dinitrate (Isordil) 10 mg PO TID [facility] Last Admin: 04/21/16 09:39 Dose: 10 mg Metoprolol Tartrate (Lopressor) 25 mg PO BID [facility] Last Admin: 04/21/16 09:39 Dose: 25 mg Warfarin Sodium (Coumadin) 5 mg PO SUMOSA [facility] Last Admin: 04/21/16 00:56 Dose: 5 mg Derm Triamcinolone Acetonide (Kenalog) 1 applic TP PRN PRN PRN Reason: Rash Endocrine Levothyroxine Sodium (Levothroid) 250 mcg PO DAILY@0730 [facility] Potassium Chloride (K-Dur) 40 meq PO DAILY [facility] Last Admin: 04/21/16 09:38 Dose: 40 meq GI Docusate Sodium (Colace) 100 mg PO BID [facility] Last Admin: 04/21/16 09:39 Dose: 100 mg Pantoprazole Sodium (Protonix) 40 mg PO DAILY [facility] Last Admin: 04/21/16 09:39 Dose: 40 mg Finasteride (Proscar) 5 mg PO DAILY [facility] Last Admin: 04/21/16 09:38 Dose: 5 mg ID Nystatin (Mycostatin Topical Powder) 1 applic TP BID [facility] PRN Acetaminophen (Tylenol) 650 mg PO Q6H PRN PRN Reason: Pain or Temperature > 100.5 F Last Admin: 04/21/16 09:44 Dose: 650 mg Benzocaine/Menthol (Cepacol) 1 each PO PRN PRN PRN Reason: Sore Throat Bisacodyl (Dulcolax) 10 mg KS DAILY PRN PRN Reason: Constipation Last Admin: 04/21/16 09:51 Dose: 10 mg Bisacodyl (Dulcolax) 5 mg PO DAILY PRN PRN Reason: Constipation Magnesium Hydroxide (Milk Of Magnesia) 30 ml PO DAILY PRN PRN Reason: Constipation Melatonin (Melatonin) 3 mg PO BEDTIME PRN PRN Reason: Insomnia Last Admin: 04/21/16 00:17 Dose: 3 mg Ondansetron HCl (Zofran Odt) 4 mg PO Q8H PRN PRN Reason: Nausea Oxycodone HCl (Roxicodone) 5 mg PO Q3H PRN PRN Reason: Pain Petrolatum/Paraffin/Mineral Oil (Blistex) 1 each TP PRN PRN PRN Reason: Dry and/or chapped lips Pulm Albuterol Sulfate (Ventolin Inhalation Solution (Dose)) 2.5 mg NEB Q4H PRN PRN Reason: Wheezing Rheum Allopurinol (Zyloprim) 100 mg PO DAILY [facility] Last Admin: 04/21/16 09:39 Dose: 100 mg VTE warfarin - Problems: Assessment/Plan (1) Combined systolic and diastolic congestive heart failure Qualifiers: Congestive heart failure chronicity: acute on chronic Qualifier Code: ( I50.43) Acute on chronic combined systolic (congestive) and diastolic ( congestive) heart failure Status: AcuteAssessment/Plan: Patient with anasarca attributed to combined s/d CHF, acute on chronic. Pt had TTE done in Mar at [facility] with low EF noted (prev 35%), along with mechanical AV. Continue with IV Lasix; BP has been good, urine output good, Creatinine improved. with edema, will also reduce amlodipine to 5 mg. (2) CKD (chronic kidney disease) stage 3, GFR 30-59 ml/min Status: ChronicAssessment/Plan: Cr 1.7->1.5 so far with diuresis. Will continue IV Lasix (hoping to optimize cardiac output), monitor Cr. (3) COPD (chronic obstructive pulmonary disease) Qualifiers: COPD type: emphysema Emphysema type: unspecified Qualifier Code: ( J43.9) Emphysema, unspecified Status: ChronicAssessment/Plan: Appears stable, neb prn (4) History of aortic valve replacement with metallic valve Status: ChronicAssessment/Plan: On Coumadin, Had TTE in Mar at [facility], EF sl down from previous of 35%. INR 2.57 today. 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 Completed course of cefpodoxime rx from [facility] Appears healing. (6) Anemia Qualifiers: Anemia type: other cause Other causes of anemia: chronic disease, kidney Qualifier Code: (N18.9) Chronic kidney disease, unspecified Status: ChronicAssessment/Plan: Patient with previous (2014) documentation of severe iron deficiency. Suspect illness, prolonged hospitalization, anticoagulation, and CKD as contributing factors. Would consider for transfusion, but will wait on this to see if further improvement with diuresis, as well as iron supplement. Concern about volume overload with PRBC, so will wait on this for now. 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 Adjusted levothyroxine dose. VTE Prophylaxis: On coumadin. Disposition: Consider for moving to med/surg today. Return to SNF when CHF appears to be stabilized, prob 2-3 more days.
[2016-04-21] MEDS ORDERED: IRON SUCROSE COMPLEX 200 MG in SODIUM CHLORIDE 0.9% 100 ML IV ONE (10:32)
--- NOTE | 2016-04-21 11:27 | PDOC36 ---
Provider Note Subject: Clarifications Note: At this time, would not diagnose UTI At this time, would not diagnose DM PT with modest JOHNNIE on CKI3, appears improved.
[2016-04-21] MEDS ORDERED: PUMP TUBING ONE (11:51)
--- NOTE | 2016-04-21 13:17 | PDOC36 ---
Provider Note Subject: records from [facility] indicate patient was diagnosed and started treatment for C. Diff on 04/18 with Flagyl-enteric contact precautions and resume PO Flagyl
[2016-04-21] MEDS: TRIAMCINOLONE ACET 0.025% TP PRN (13:25)
[2016-04-21] MEDS: NYSTATIN TOPICAL POWDER 100 MU/G 5 APPLIC/15 G BOT TP SCH ×2 (13:25→21:08)
[2016-04-21] MEDS: METRONIDAZOLE 500 MG TABLET PO SCH ×2 (15:53→21:08)
[2016-04-21] MEDS ORDERED: WARFARIN SODIUM 5 MG TABLET PO SCH (16:00)
[2016-04-21] MEDS: ZOLPIDEM TARTRATE 5 MG TABLET PO PRN (23:04)
[2016-04-22] MEDS: ACETAMINOPHEN 325 MG TABLET PO PRN ×2 (01:23→11:05)
[2016-04-22] MEDS: OXYCODONE HCL 5 MG TABLET PO PRN ×3 (01:23→20:37)
[2016-04-22] MEDS: TRIAMCINOLONE ACET 0.025% TP PRN (05:36)
[2016-04-22 06:50] LABS: ABSOLUTE NEUTROPHIL COUNT 3.9 K/mm3 (1.8-7.7); BASO # 0.1 K/mm3 (0.0-0.2); BASO % 0.9 % (0.2-1.0); EOS # 0.2 (0.0-0.5); EOS % 3.8 % (0.9-2.9); HEMATOCRIT 27.5 % (32.0-52.0); HEMOGLOBIN 8.2 gm/l (14.0-18.0); IMM NEUT% 0.5 % (0-1); LYMPH # 0.8 (1.0-4.8); LYMPH % 13.6 % (15-45); MEAN CELL VOLUME 93.5 fl (80.0-94.0); MEAN CORPUSCULAR HEMOGLOBIN 27.9 pg (27.0-31.0); MEAN CORPUSCULAR HGB CONC 29.8 g/dl (33.0-37.0); MEAN PLATELET VOLUME 9.8 fl (7.4-10.4); MONO # 0.6 (0.0-0.8); MONO % 11.4 % (4-12); NEUT % 69.8 % (43-75); PLATELET COUNT 337 K/mm3 (130-400); RED CELL DISTRIBUTION WIDTH 20.9 % (11.5-14.5)
[2016-04-22 07:13] LABS: INR 3.9
[2016-04-22 07:15] LABS: ALB/GLOB RATIO 0.8 (>1.0); ALBUMIN 2.8 gm/dL (3.5-5.7); CALCIUM 8.2 mg/dL (8.6-10.3)
[2016-04-22] MEDS: LEVOTHYROXINE SODIUM 125 MCG TABLET PO SCH (07:53)
[2016-04-22] MEDS: FUROSEMIDE 100 MG/10 ML VIAL IV SCH (09:57)
[2016-04-22] MEDS: ISOSORBIDE DINITRATE 10 MG TABLET PO SCH ×3 (09:58→20:37)
[2016-04-22] MEDS: PANTOPRAZOLE 40 MG TABLET DR PO SCH (09:58)
[2016-04-22] MEDS: POTASSIUM CHLORIDE 10 MEQ TAB.SR PO SCH (09:58)
[2016-04-22] MEDS: METRONIDAZOLE 500 MG TABLET PO SCH ×3 (09:58→20:37)
[2016-04-22] MEDS: AMLODIPINE BESYLATE 5 MG TABLET PO SCH (09:58)
[2016-04-22] MEDS: METOPROLOL TARTRATE 25 MG TABLET PO SCH ×2 (10:00→20:37)
[2016-04-22] MEDS: FINASTERIDE 5 MG TABLET PO SCH (10:00)
[2016-04-22] MEDS: ALLOPURINOL 100 MG TABLET PO SCH (10:00)
[2016-04-22] MEDS: ASPIRIN (ENTERIC COATED) 81 MG TABLET.EC PO SCH (10:00)
[2016-04-22] MEDS: NYSTATIN TOPICAL POWDER 100 MU/G 5 APPLIC/15 G BOT TP SCH ×2 (10:01→20:37)
[2016-04-22] MEDS: ATORVASTATIN CALCIUM 40 MG TABLET PO SCH (10:05)
[2016-04-22] MEDS: DOCUSATE SODIUM 100 MG CAPSULE PO SCH ×2 (10:21→20:37)
--- NOTE | 2016-04-22 17:44 | PDOC43 ---
- Subjective Chief Complaint: anasarca, recent Gely's gangrene Patient awake sitting up in chair. Diarrhea has stopped, no pain. Denies shortness of breath, chest pain. He is fearful of removing his catheter due to recent surgery. Does not want to leave the hospital early as he does not want to return. Subjective: Reports Pain Tolerable, Reports Tolerating Diet Well, Reports Adequate Oral Intake, Denies Shortness of Breath, Denies Cough, Denies Chest Pain, Denies Abdominal Pain, Denies Nausea, Denies Vomiting - Objective Vital Signs Temperature 98.0 F 04/22/16 16:00 Pulse Rate 73 04/22/16 16:00 Respiratory Rate 18 04/22/16 16:00 Blood Pressure 108/67 04/22/16 16:00 O2 Saturation by Pulse Oximetry 95 04/22/16 16:00 Oxygen Delivery Method Room Air Oxygen Flow Rate 0 Intake and Output 04/20/16 04/21/16 04/22/16 23:59 23:59 23:59 Intake Total 1405 1091 Output Total 3175 1150 Balance -1770 -59 General: Alert, Oriented x3, Cooperative, Other (morbidly obes), No Acute Distress HEENT: Atraumatic, Mucous membr. moist/pink Lungs: Clear to Auscultation Bilaterally, Normal Air Movement, Other (no crackle or wheeze) Cardiovascular: Regular Rate and Rhythm, Normal S1, Normal S2, Murmur (click) Abdomen: Soft, Mild Distention, No Rigid, No Tenderness, No Rebounding Extremities: Edema, Other (B/L LE scratches), No Cyanosis, No Tenderness Peripheral Pulses: Radial (L): 2+, Radial (R): 2+ Neurological: Normal Speech, Other (hard of hearing) Psych/Mental Status: Normal Mood Laboratory 04/22/16 06:30 04/22/16 06:30 04/22/16 06:30 RBC 2.94 L MCHC 29.8 L RDW 20.9 H PT 44.0 H BUN 44 H Estimated GFR 49 L Calcium 8.2 L B-Natriuretic Peptide > 1250 H Total Protein 6.2 L Albumin 2.8 L Albumin/Globulin Ratio 0.8 L Current Medications: Current meds reviewed in EMR. 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 Completed course of cefpodoxime rx from [facility] Appears healing. Morrison to help with wound care (2) Anemia Qualifiers: Anemia type: other cause Other causes of anemia: chronic disease, kidney Qualifier Code: (N18.9) Chronic kidney disease, unspecified Status: ChronicAssessment/Plan: Patient with previous (2014) documentation of severe iron deficiency. Suspect illness, prolonged hospitalization, anticoagulation, and CKD as contributing factors. Would consider for transfusion, but will wait on this to see if further improvement with diuresis, as well as iron supplement. Concern about volume overload with PRBC, so will wait on this for now. (3) BPH (benign prostatic hyperplasia) Qualifiers: Prostatic enlargement morphology: unspecified morphology Lower urinary tract symptom presence: presence of symptoms unspecified Qualifier Code: ( N40.0) Benign prostatic hyperplasia without lower urinary tract symptoms Status: ChronicAssessment/Plan: continue home medication (4) History of aortic valve replacement with metallic valve Status: ChronicAssessment/Plan: On Coumadin, Had TTE in Mar at [facility], EF sl down from previous of 35%. INR 2.57 today. (5) Combined systolic and diastolic congestive heart failure Qualifiers: Congestive heart failure chronicity: acute on chronic Qualifier Code: ( I50.43) Acute on chronic combined systolic (congestive) and diastolic ( congestive) heart failure Status: AcuteAssessment/Plan: Patient with anasarca attributed to combined s/d CHF, acute on chronic. Pt had TTE done in Mar at [facility] with low EF noted (prev 35%), along with mechanical AV. Continue with IV Lasix; BP has been good, urine output good, Creatinine improved. with edema, will also reduce amlodipine to 5 mg. (6) Benign essential hypertension Status: ChronicAssessment/Plan: stable (7) CKD (chronic kidney disease) stage 3, GFR 30-59 ml/min Status: ChronicAssessment/Plan: Cr 1.7->1.5 so far with diuresis. Will continue IV Lasix (hoping to optimize cardiac output), monitor Cr. (8) COPD (chronic obstructive pulmonary disease) Qualifiers: COPD type: emphysema Emphysema type: unspecified Qualifier Code: ( J43.9) Emphysema, unspecified Status: ChronicAssessment/Plan: Appears stable, neb prn (9) Coronary artery disease Qualifiers: Coronary Disease-Associated Artery/Lesion type: [place] artery [place] vs. 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 Adjusted levothyroxine dose. (12) C. difficile diarrhea Status: AcuteAssessment/Plan: Diagnosed 04/18 on flagyl. Continue 10 days of treatment. Contact precautions (13) Obesity (BMI 30.0-34.9) Status: ChronicAssessment/Plan: complicates medical care VTE Prophylaxis: On coumadin. Disposition: Consider for moving to med/surg today. Return to SNF when CHF appears to be stabilized, prob 2-3 more days.
[2016-04-22] MEDS: FUROSEMIDE 80 MG TABLET PO SCH (20:37)
[2016-04-23] MEDS: ACETAMINOPHEN 325 MG TABLET PO PRN
[2016-04-23] MEDS: ZOLPIDEM TARTRATE 5 MG TABLET PO PRN (00:24)
[2016-04-23] MEDS: OXYCODONE HCL 5 MG TABLET PO PRN ×3 (00:24→12:29)
[2016-04-23] MEDS ORDERED: WATER FOR IRRIG,STERILE 500 ML BOT ONE (02:38)
[2016-04-23 06:21] LABS: INR 4.26; PROTHROMBIN TIME 48.3 SECONDS (9.3-11.4)
[2016-04-23] MEDS: LEVOTHYROXINE SODIUM 125 MCG TABLET PO SCH (08:18)
[2016-04-23] MEDS: PANTOPRAZOLE 40 MG TABLET DR PO SCH (09:57)
[2016-04-23] MEDS: ASPIRIN (ENTERIC COATED) 81 MG TABLET.EC PO SCH (09:57)
[2016-04-23] MEDS: FINASTERIDE 5 MG TABLET PO SCH (09:57)
[2016-04-23] MEDS: DOCUSATE SODIUM 100 MG CAPSULE PO SCH (09:57)
[2016-04-23] MEDS: POTASSIUM CHLORIDE 10 MEQ TAB.SR PO SCH (09:57)
[2016-04-23] MEDS: ISOSORBIDE DINITRATE 10 MG TABLET PO SCH ×2 (09:57→14:56)
[2016-04-23] MEDS: METRONIDAZOLE 500 MG TABLET PO SCH ×2 (09:58→14:56)
[2016-04-23] MEDS: ALLOPURINOL 100 MG TABLET PO SCH (09:58)
[2016-04-23] MEDS: AMLODIPINE BESYLATE 5 MG TABLET PO SCH (09:58)
[2016-04-23] MEDS: ATORVASTATIN CALCIUM 40 MG TABLET PO SCH (09:58)
[2016-04-23] MEDS: METOPROLOL TARTRATE 25 MG TABLET PO SCH (09:58)
[2016-04-23] MEDS: FUROSEMIDE 80 MG TABLET PO SCH (09:58)
[2016-04-23] MEDS: BISACODYL 10 MG SUP PR PRN (09:58)
[2016-04-23] MEDS: TRIAMCINOLONE ACET 0.025% TP PRN (10:13)
[2016-04-23] MEDS: NYSTATIN TOPICAL POWDER 100 MU/G 5 APPLIC/15 G BOT TP SCH (10:14)
--- NOTE | 2016-04-23 11:32 | PDOC43 ---
- Subjective Chief Complaint: anasarca, recent Gely's gangrene, CHF Patient reports doing ok. Asks about inhaler, but overall, not shantal short of breath. Edema seems sl better. No new c/o. Seems to be feeling better overall. No new nursing c/o. - Objective Vital Signs Temperature 98.1 F 04/23/16 07:54 Pulse Rate 74 04/23/16 07:54 Respiratory Rate 18 04/23/16 08:22 Blood Pressure 111/62 04/23/16 07:54 O2 Saturation by Pulse Oximetry 93 04/23/16 08:22 Oxygen Delivery Method Room Air Oxygen Flow Rate 0 Vital Signs Last 12 Hours Temp Pulse Resp BP Pulse Ox 04/23/16 08:22 18 93 04/23/16 07:54 98.1 F 74 18 111/62 93 04/23/16 01:30 98.6 F 83 20 107/62 94 Intake and Output 04/21/16 04/22/16 04/23/16 23:59 23:59 23:59 Intake Total 1405 1891 710 Output Total 3175 1950 650 Balance -1770 -59 60 General: Alert, Cooperative, No Acute Distress HEENT: Atraumatic Lungs: Other (mostly CTA bilat. Sl wheeze, sl crackles.) Cardiovascular: Regular Rate and Rhythm, Other (loud mechanical aortic valve.) Abdomen: Soft, Normal Bowel Sounds, Non-Distended Extremities: Edema (1-2+ LE edema, improved.) Neurological: Normal Speech Psych/Mental Status: Other (more alert, awake. [place]TOK.) Laboratory 04/22/16 06:30 04/22/16 06:30 04/23/16 05:30 PT 48.3 H Laboratory Tests 04/12/15 04/13/15 04/14/15 14:10 05:20 05:30 PT INR 4.94 H* 4.12 2.77 Troponin I 0.04 04/21/16 04/22/16 04/23/16 05:10 06:30 05:30 PT 28.4 H 44.0 H 48.3 H INR 2.57 3.90 4.26 Troponin I Current Medications: Current meds reviewed in EMR. Active Medications Acetaminophen (Tylenol) 650 mg PO Q6H PRN PRN Reason: Pain or Temperature > 100.5 F Last Admin: 04/23/16 00:00 Dose: 650 mg Albuterol Sulfate (Ventolin Inhalation Solution (Dose)) 2.5 mg NEB Q4H PRN PRN Reason: Wheezing Allopurinol (Zyloprim) 100 mg PO DAILY [facility] Last Admin: 04/23/16 09:58 Dose: 100 mg Amlodipine Besylate (Norvasc) 5 mg PO DAILY [facility] Last Admin: 04/23/16 09:58 Dose: 5 mg Aspirin (Ecotrin) 81 mg PO DAILY [facility] Last Admin: 04/23/16 09:57 Dose: 81 mg Atorvastatin Calcium (Lipitor) 80 mg PO DAILY [facility] Last Admin: 04/23/16 09:58 Dose: 80 mg Benzocaine/Menthol (Cepacol) 1 each PO PRN PRN PRN Reason: Sore Throat Bisacodyl (Dulcolax) 10 mg WI DAILY PRN PRN Reason: Constipation Last Admin: 04/23/16 09:58 Dose: 10 mg Bisacodyl (Dulcolax) 5 mg PO DAILY PRN PRN Reason: Constipation Docusate Sodium (Colace) 100 mg PO BID [facility] Last Admin: 04/23/16 09:57 Dose: 100 mg Finasteride (Proscar) 5 mg PO DAILY [facility] Last Admin: 04/23/16 09:57 Dose: 5 mg Furosemide (Lasix) 80 mg PO BID [facility] Last Admin: 04/23/16 09:58 Dose: 80 mg Sodium Chloride (Sodium Chloride 0.9%) 100 mls @ 25 mls/hr IV PRN PRN PRN Reason: Flush Last Admin: 04/21/16 12:06 Dose: 25 mls/hr Isosorbide Dinitrate (Isordil) 10 mg PO TID [facility] Last Admin: 04/23/16 09:57 Dose: 10 mg Levothyroxine Sodium (Levothroid) 250 mcg PO DAILY@0730 [facility] Last Admin: 04/23/16 08:18 Dose: 250 mcg Magnesium Hydroxide (Milk Of Magnesia) 30 ml PO DAILY PRN PRN Reason: Constipation Melatonin (Melatonin) 3 mg PO BEDTIME PRN PRN Reason: Insomnia Last Admin: 04/21/16 21:08 Dose: 3 mg Metoprolol Tartrate (Lopressor) 25 mg PO BID [facility] Last Admin: 04/23/16 09:58 Dose: 25 mg Metronidazole (Flagyl) 500 mg PO TID [facility] Last Admin: 04/23/16 09:58 Dose: 500 mg Nystatin (Mycostatin Topical Powder) 1 applic TP BID [facility] Last Admin: 04/23/16 10:14 Dose: 1 applic Ondansetron HCl (Zofran Odt) 4 mg PO Q8H PRN PRN Reason: Nausea Last Admin: 04/21/16 19:11 Dose: 4 mg Oxycodone HCl (Roxicodone) 5 mg PO Q3H PRN PRN Reason: Pain Last Admin: 04/23/16 06:10 Dose: 5 mg Pantoprazole Sodium (Protonix) 40 mg PO DAILY [facility] Last Admin: 04/23/16 09:57 Dose: 40 mg Petrolatum/Paraffin/Mineral Oil (Blistex) 1 each TP PRN PRN PRN Reason: Dry and/or chapped lips Potassium Chloride (K-Dur) 40 meq PO DAILY [facility] Last Admin: 04/23/16 09:57 Dose: 40 meq Sodium Chloride (Normal Saline 10ml Flush) 10 - 50 ml IV PRN PRN PRN Reason: IV Flush Last Admin: 04/21/16 12:06 Dose: 10 ml Sodium Chloride (Normal Saline 10ml Flush) 10 ml IV Q8HR [facility] Last Admin: 04/23/16 09:57 Dose: 10 ml Triamcinolone Acetonide (Kenalog) 1 applic TP PRN PRN PRN Reason: Rash Last Admin: 04/23/16 10:13 Dose: 1 applic Warfarin Sodium (Coumadin) 5 mg PO DAILY@1600 [facility] Zolpidem Tartrate (Ambien) 5 mg PO BEDTIME PRN PRN Reason: Sleep Last Admin: 04/23/16 00:24 Dose: 5 mg - Problems: Assessment/Plan (1) Combined systolic and diastolic congestive heart failure Qualifiers: Congestive heart failure chronicity: acute on chronic Qualifier Code: ( I50.43) Acute on chronic combined systolic (congestive) and diastolic ( congestive) heart failure Status: AcuteAssessment/Plan: Patient with anasarca attributed to combined s/d CHF, acute on chronic. Pt had TTE done in Mar at [facility] with low EF noted (prev 35%), along with mechanical AV. Has been on IV Lasix, change to PO; BP has been good, urine output good, Creatinine improved, but continues BNP>1250 with edema-also reduced amlodipine to 5 mg. (2) CKD (chronic kidney disease) stage 3, GFR 30-59 ml/min Status: ChronicAssessment/Plan: Cr 1.7->1.5 so far with diuresis. Will continue on (PO) Lasix (hoping to optimize cardiac output), monitor Cr. (3) COPD (chronic obstructive pulmonary disease) Qualifiers: COPD type: emphysema Emphysema type: unspecified Qualifier Code: ( J43.9) Emphysema, unspecified Status: ChronicAssessment/Plan: Appears stable, neb prn. (4) History of aortic valve replacement with metallic valve Status: ChronicAssessment/Plan: On Coumadin, Had TTE in Mar at [facility], EF sl down from previous of 35%. INR 4.26 today. 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 Completed course of cefpodoxime rx from [facility] Appears healing. [facility] to help with wound care (6) Anemia Qualifiers: Anemia type: other cause Other causes of anemia: chronic disease, kidney Qualifier Code: (N18.9) Chronic kidney disease, unspecified Status: ChronicAssessment/Plan: Patient with previous (2014) documentation of severe iron deficiency. Suspect illness, prolonged hospitalization, anticoagulation, and CKD as add'l contributing factors. Considered for transfusion, but waited on this to see if further improvement with diuresis, as well as iron supplement. Concern about volume overload with PRBC, so will wait on this for now. 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 Adjusted levothyroxine dose. Consider recheck TSH in 4-6 weeks (8) C. difficile diarrhea Status: AcuteAssessment/Plan: Diagnosed 04/18 on flagyl. Continue 10 days of Flagyl. Contact precautions VTE Prophylaxis: On coumadin. Disposition: anticipate return to SNF, as CHF appears to be stabilized,
[2016-04-23] MEDS ORDERED: PUMP TUBING ONE (12:21)
[2016-04-23] MEDS ORDERED: IRON SUCROSE COMPLEX 200 MG in SODIUM CHLORIDE 0.9% 100 ML IV ONE (12:30)
[2016-04-23] MEDS ORDERED: SODIUM CHLORIDE 0.9% FLUSH 10 ML ONE (12:45)
[2016-04-23] MEDS ORDERED: IV START KIT ONE (12:46)
[2016-04-23 14:05] VITALS: BP 114/69
[2016-04-23] MEDS ORDERED: WARFARIN SODIUM 5 MG TABLET PO SCH (16:00)
--- NOTE | 2016-04-23 17:24 | DS ---
[facility] [id number] DATE OF ADMISSION: 04/20/2016 DATE OF DISCHARGE: 04/23/2016 DISCHARGE DIAGNOSES: 1. Combined systolic and diastolic congestive heart failure. 2. Recent Gely's gangrene, status post drainage at [facility]. 3. Anemia, attributed to iron deficiency, chronic illness and medical care. 4. C-diff colitis, present on admission. 5. Hypertension. 6. COPD. 7. Atrial fibrillation, with good rate control. 8. Presence of mechanical aortic valve. 9. Hypothyroidism, with suppressed TSH, dose now revised. 10. Chronic kidney disease, with creatinine going from 1.7 to 1.4 during hospitalization. REASON FOR ADMISSION: The patient is a 75-year-old male who had been recently discharged from [facility] after incision and drainage for Fourier's gangrene. He had complex care, with multiple procedures between 03/29/2016 and 04/02/2016, and was on a ventilator for several days as well. He was discharged in April to [facility] and he had also had a previous history of urinary tract infection with proteus mirabilis. He had been recuperating at [facility] when the staff noticed increased swelling in the lower extremities over the previous 48 hours and some dyspnea on exertion, and was referred to the emergency department. In the emergency department the patient was noted to have an elevated BNP of greater than 1,250. His white count was 8.7, hemoglobin 7.8, MCV of 92.0 and platelet count 307. INR at 2.7, with a lactate of 1.4. Sodium 134, potassium 4.4, BUN of 54, creatinine 1.7, glucose 124, calcium 8.2, magnesium 1.6, AST of 17, ALT of 18 and alkaline phosphatase 101. Troponin is 0.05. TSH is 0.02. Free T4 is 0.63. His urinalysis showed 6-10 red cells, but otherwise was unremarkable in a Morrison specimen. His chest x-ray suggested cardiomegaly and prior heart surgery, but no acute pulmonary process. HOSPITAL COURSE: The patient was referred to the Hospitalist Service and was admitted to the intensive care unit due to borderline blood pressures and concern about cardiogenic shock and toleration of diuresis. He did well with IV Lasix and had improvement in blood pressure and renal function, with Lasix at 80 mg IV twice a day. His wound was redressed twice a day as ordered by surgeon and his thyroid dose was reduced from 275 to 250 mcg daily. He was given a cardiac diet and INR was monitored. Later his information came from the care center showing that he had been on Flagyl for C-clostridium difficile as well, so Flagyl was started. The patient had generally good improvement in well-being. His hemoglobin improved from 7.8 to 8.2. Consideration was made for transfusion, however, the concern for fluid overload precluded this. He had had previous documentation of significant iron deficiency in the past, so Venofer 200 mg was dosed on two different days. His INR climbed from 2.7 on admission to 4.26 on 04/23/2016, despite holding his Coumadin on 04/22/2016. It is anticipated to be restarted as an outpatient. His creatinine improved to 1.4. Sodium and potassium remained normal. His BNP remained elevated at greater than 1,250. His amlodipine was also reduced from 10 mg to 5 mg due to concern for this causing peripheral edema. By 04/23/2016 he was felt to be improved and his appearance and well-being appeared to be significantly improved. He is anticipated to be discharged back to [facility] and will be on the following medications: 1. Acetaminophen 650 mg by mouth every six hours as needed. 2. Ventolin nebulizer 2.5 mg every four hours as needed. 3. Albuterol sulfate two puffs inhaled every six hours as needed. 4. Zyloprim 100 mg by mouth daily. 5. Amlodipine, reduced to 5 mg daily. 6. Aspirin 81 mg daily. 7. Atorvastatin 80 mg daily. 8. Dulcolax 10 mg MI daily as needed. 9. Calcium citrate with vitamin D one by mouth daily. 10. Docusate 100 mg by mouth twice a day. 11. Finasteride 5 mg by mouth daily. 12. Lasix 80 mg by mouth twice a day, which is increased. 13. Combivent one puff inhaled four times a day. 14. Isosorbide dinitrate 10 mg by mouth three times a day. 15. Xyzal 5 mg by mouth daily. 16. Levothyroxine 125 mcg two by mouth daily. 17. [id number] 30 mg a day as needed. 18. Melatonin 3 mg at bedtime as needed. 19. Metoprolol tartrate 25 mg by mouth twice a day. 20. Flagyl 500 mg by mouth three times a day until 04/28/2016. 21. Nystatin topical powder twice a day. 22. Omeprazole 20 mg by mouth daily. 23. Ondansetron 4 mg every eight hours as needed. 24. Oxycodone 5 mg by mouth every three hours as needed. 25. Potassium chloride 40 mEq by mouth twice a day. 26. Tamsulosin 0.4 mg daily. 27. Kenalog 0.025% topically twice a day. 28. Warfarin 2.5 mg, which is a reduced dose, to be started on 04/24/2016. INR, CBC and basic metabolic panel is requested to be checked on 04/25/2016, and copy sent to Dr. Inman. PLAN: They will continue wound care, with dry dressing replacements twice a day. His diet will be a cardiac diet. He is weightbear as tolerated. He is full code status. He will have PT and OT therapies. Follow-up with Dr. Inman on 05/01/2016 at 2:00 P.M. He is also requested to be weighed daily. He will continue the Morrison catheter which had been placed to promote healing at the incision in his groin. cc: Dr. Sukhdev Inman
== END 2016-04-23 15:30 | DRG 304 ==
LOC: ED 18:39 → ICU 20:14 → MS 04-21 18:51
PROVIDERS: ADMIT Family Medicine; ATTEND Family Medicine
DX: I13.10 Hypertensive heart and chronic kidney disease without heart failure, with stage 1 through stage 4 chronic kidney disease, or unspecified chronic kidney disease (principal); I50.43 Acute on chronic combined systolic (congestive) and diastolic (congestive) heart failure; Z79.01 Long term (current) use of anticoagulants; E03.9 Hypothyroidism, unspecified; I25.10 Atherosclerotic heart disease of native coronary artery without angina pectoris; I48.0 Paroxysmal atrial fibrillation; N18.3 Chronic kidney disease, stage 3 (moderate); N49.3 Fournier gangrene; D63.1 Anemia in chronic kidney disease; B96.89 Other specified bacterial agents as the cause of diseases classified elsewhere; J44.9 Chronic obstructive pulmonary disease, unspecified